=== PATIENT | female | born 1970 | race Caucasian/White ===

== ENCOUNTER 2016-09-09 02:08 | Inpatient (IN) | payer MEDICARE, OTHER ==
--- NOTE | ~2016-09-09 | DS ---
Unit #: [id number] #: [id number] Patient: ERINN GORDON [id number] [address] [place], [place] [address] [id number] I MR#: [id number] NAME: ERINN GORDON ROOM: 333 Age: 45 Sex: F Admission Date: 09/12/2016 : 1970 Discharge Date: 09/16/2016 Attending Physician: Sharmila Berry M.D. Primary Care Physician: No Primary Care Physician DISCHARGE SUMMARY FINAL DIAGNOSES 1. Acute respiratory failure, which is resolved. 2. Healthcare acquired pneumonia. 3. Left lower lobe pneumonia. 4. Urinary tract infection with urine culture growing e-coli. 5. Seizure with a history of seizure disorder. 6. History of profound mental retardation. 7. Code status DNR. 8. Gastroesophageal reflux disease. 9. Dysphagia, status post PEG placement. DISCHARGE MEDICATIONS 1. Continue home medications. 2. The patient is on antibiotics IV with ceftriaxone and IV Zyvox, which will be continued as per Dr. Tyler Edward's recommendation. 3. The patient was on vancomycin and Zosyn also, which have been discontinued, which he received from 09/09 to 09/14/2016. CONSULTANTS Dr. Tyler Edward from pulmonary services. DIAGNOSTIC DATA LABORATORY: At discharge, sodium 142, potassium 3.7, chloride 104, BUN 13, creatinine 0.5, calcium 8.9, white blood cell count 6.5, hemoglobin 12.4, hematocrit 39.1 and platelets 205. Blood cultures are negative. Sputum culture is no growth of pathogens. Urine culture is e-coli more than 100,000 colonies. One of the blood cultures grew staph which is coag negative. Probable skin contaminant. Lactic acid 0.8 on admission. IMAGING: Chest x-ray on 09/09/2016 which showed left lower lobe pneumonia. Repeat chest x-ray was done on 09/12/2016 and showed mild elevation of the left hemidiaphragm with infiltrate. Linear density seen in the left lung base favors atelectasis, although superimposed infiltrate not excluded. Mild pulmonary congestion. Abdominal x-ray done on 09/12/2016 shows enteric tube placed through the gastrostomy tube with the tip in the left mid abdomen likely in the jejunum. There is gaseous distension of multiple loops of bowel which appear to be both small bowel and colon. HOSPITAL COURSE Ms. Erinn Gordon is a 45-year-old female who is a resident of [facility]. She has multiple medical problems. She has been admitted multiple times for chronic aspiration and multiple pneumonias. The Unit #: [id number] #: [id number] Patient: ERINN GORDON patient was admitted with [id number] hypoxic respiratory failure. The patient was diagnosed with possible left lower lobe pneumonia, possible MRSA or gram negative. The patient was started on Zyvox, tobramycin and Zosyn. Urinalysis was also done, which showed e-coli more than 100,000 colonies. The patient was treated with IV antibiotics. The patient's code status is DNR, which was continued during hospitalization. The patient's blood culture was thought to be skin contaminant. The patient is doing better now. She is off her oxygen and saturations are pretty good. The patient did have seizure activity during hospitalization on 09/12/2016. She was seen by Dr. Arrieta and home medications were continued. No changes were made in the medications. The patient is stable and is being discharged back to [facility] for continued antibiotics. PHYSICAL EXAMINATION VITALS: Blood pressure 113/59, respiratory rate 18, pulse 64, temperature 97.9. CHEST: Fair air entry. Decreased at the bases. HEART: S1 and S2 positive. Regular rhythm. DISPOSITION The patient is being discharged back to [facility] in stable condition. Medications as per medication reconciliation. FOLLOWUP Follow up with Dr. Tyler Edward in one week. Dictated by... Lucina Pinedo TD: 09/16/2016 14:18 JOB #: [id number] DISCHARGE SUMMARY X Sharmila Berry MD X DISCHARGE SUMMARY
--- NOTE | ~2016-09-09 | CO ---
Unit #: [id number] #: [id number] Patient: ADELINA TRIANA [id number] [facility]. [place], [place] [address] [id number] Jacinda MR#: [id number] NAME: ADELINA TRIANA ROOM: 333 Age: 45 Sex: F Admission Date: 09/09/2016 : 1970 Attending Physician: Sharmila Berry M.D. Primary Care Physician: Primary Care Physician No Consultation Date: 09/12/2016 CONSULTATION REPORT PRIMARY CARE PHYSICIAN Barbra Morgan M.D. REASON FOR CONSULTATION Multiple seizure. PATIENT IDENTIFICATION This is a 45-year-old white female, who is actually a resident of [facility]. She has significant mental retardation and cerebral palsy. SOURCE OF INFORMATION Previous records. I have seen this patient several times in the past. PROBLEM LIST Pneumonia, aspiration, fever, hypoxic and hypercapnic respiratory failure, UTI, recurrent respirations, Angelman syndrome. HISTORY OF PRESENT ILLNESS This is a 45-year-old female from [facility] who was actually admitted for different reasons. I just found out that there may have been discrepancy in her medication. She was taking Lamictal as half the dose. She was supposed to get 400 mg b.i.d., and she may have been getting less than that also. She was not getting Klonopin, so she had multiple seizure this morning, and also, she was throwing up, so I gave her one dose of Vimpat and switch the Keppra to IV because she was throwing up, but it may be the postictal state that what she was having. Also, she has a febrile episode and may have UTI and typically the patient is very brittle and they frequently have seizures. When I saw her this morning, she was awake, she responded to visual threats. No further seizure have been seen. PAST MEDICAL HISTORY As discussed above. PAST SURGICAL HISTORY She believe has a G-tube. FAMILY HISTORY Details not available. She is at [facility]. She does have cerebral palsy. SOCIAL HISTORY She is at [facility]. No tobacco, alcohol or drug use known to us. Unit #: [id number] #: [id number] Patient: ADELINA TRIANA ALLERGIES Vancomycin, Depakote, Topamax, Avelox, Prolia. MEDICATIONS At home were lactulose; lamotrigine 200 mg 2 tablets every 12 hours, they were doing at 0500 and 1700; MiraLAX; Senna-Lax; Deep Sea nasal spray; flunisolide 0.025; Lubri-Soft; Diastat as needed; acetaminophen as needed; loratadine as needed; sodium bicarb; Brovana; budesonide; ipratropium; Nexium; Keppra 1000 mg every 12 hours and 500 extra so that will be total 1500; clonazepam 1 mg q.i.d.; Ferrocite; guaifenesin. REVIEW OF SYSTEMS Could not be obtained because of his present condition. PHYSICAL EXAMINATION VITAL SIGNS: Temperature is 101 degrees Fahrenheit, pulse is 100, respirations are 20, blood pressure 128/107, O2 sats were 90% to 98%, weight of 115 pounds. NEUROLOGIC: The patient is awake. She tracks. She responds to visual threat, so obviously she is nonverbal and she is not really otherwise following commands. Cranial nerve examination demonstrates respond to threats in the primary beauchamp. Eye movements seemed to be somewhat conjugate. No ptosis. No nystagmus. Sensation of the face and scalp, I do not see any facial asymmetry. Hearing is questionable. Tongue was midline. I could not visualize oropharynx or uvula. Head turning was spontaneous. Motor examination; she has contractures and clonus in the lower extremities. Limited movement in the upper extremities. I could not have her relaxed to get good reflexes, but she has clonus in the lower extremities. Gait and coordination could not be evaluated. Sensory examination; responded to pain. Motor examination, contractures, minimal withdrawal to pain. DIAGNOSTIC STUDIES LABORATORY RESULTS: Reviewed. When she came in, her pCO2 was 52, also UTI. White count is 7.5. IMAGING STUDIES: Reviewed. IMPRESSION 1. Breakthrough seizure, she may not be getting the appropriate medication. 2. She has urinary tract infection and fever and that decreases seizure threshold. So, this is not uncommon. 3. My goal is to continue the medication that worked for her but if not, then we will consider other IV medication. I discussed with Dr. Berry who was taking care of her and we will observe her more peripherally. If there are any other questions or issues, please let me know and I will be more than glad to help. Unit #: [id number] #: [id number] Patient: ADELINA TRIANA This is a very brittle patient and they need regular followup and compliance with medication that has been working for them and even in that case, it is not 100% that they get better. Dictated by... Lucina Wright/zacarias TD: 09/13/2016 02:44 JOB #: [id number] CONSULTATION REPORT X Liu Arrieta MD X CONSULTATION REPORT
--- NOTE | ~2016-09-09 | CR7 ---
[facility] A Service of [facility] RADIOLOGY TEXT RESULTS PATIENT: ADELINA TRIANA LOCATION: C3A 333-01 : [birth year] UNIT #: [id number] AGE: [address]: Sharmila Berry MD SEX: F ORDER DR: [id number] [facility]. [place], [place] [address] [id number] MR#: [id number] Acc #: [id number] NAME: ADELINA TRIANA : 1970 SEX: F STUDY DATE/TIME: 09/12/2016 UNIT: C3A U ROOM: 333 STUDY DESCRIPTION: CR Abdomen Single AP View Attending Physician: Sharmila Berry M.D. Ordering Physician: Tony Edward M.D. Primary Care Physician: Primary Care Physician No MEDICAL IMAGING REPORT This report is preliminary unless electronic signature is present EXAM Abdomen one-view, 09/12/2016 12:25 hours HISTORY 45-year-old patient from [facility] complaining of abdominal pain with discomfort and cough today. Feeding tube placement. COMPARISON 03/20/2016 FINDINGS Single supine view demonstrates a gastrostomy tube with enteric tube through the G-tube with tip terminating in the left mid abdomen, likely in the jejunum. There is gaseous distension of multiple loops of bowel which appear to be both small bowel and colon. No suspicious calcifications. There is a metallic density projecting in the soft tissues of the right flank similar to prior study. IMPRESSION 1. There is an enteric tube placed through the gastrostomy tube with the tip in the left mid abdomen likely in the jejunum. 2. There is gaseous distension of multiple loops of bowel which appear to be both small bowel and colon similar to prior study. No suspicious calcifications. There is a metallic foreign body of some type in the soft tissues of the right flank similar to prior exam. Dictated by... Manuela Landrum M.D. THIS IS AN ELECTRONICALLY VERIFIED REPORT Manuela Landrum M.D. at 09/12/2016 2:32 PM HUMBERTO/ellen [facility] A Service of [facility] RADIOLOGY TEXT RESULTS PATIENT: ADELINA TRIANA LOCATION: A 333-01 : [birth year] UNIT #: [id number] AGE: [address]: Sharmila Berry MD SEX: F ORDER DR: TD: 09/12/2016 13:30 JOB #: [id number] MEDICAL IMAGING REPORT COPY
--- NOTE | ~2016-09-09 | CO ---
Unit #: [id number] #: [id number] Patient: ADELINA TRIANA [id number] [address] [place], [place] [address] [id number] I MR#: [id number] NAME: ADELINA TRIANA ROOM: 333 Age: 45 Sex: F Admission Date: 09/09/2016 : 1970 Attending Physician: Sharmila Berry M.D. Primary Care Physician: Primary Care Physician No CONSULTATION REPORT HISTORY OF PRESENT ILLNESS Ms. Triana is a 45-year-old female, who is a resident of [facility] with a history of profound mental retardation, cerebral palsy, Angelman syndrome, seizure disorder, dysphagia, G-tube placement, VNS placement, history of previous trach removed in 2008, and multiple hospitalizations for respiratory failure secondary to aspiration pneumonia. Apparently her O2 saturations dropped at [facility] and she became less responsive and presented here to the emergency room. Chest x-ray showed new left lower lobe infiltrate. We were asked to see. PAST MEDICAL HISTORY As noted above. ALLERGIES Avelox and vancomycin. MEDICATIONS Nexium, Keppra, Klonopin, lactulose, Lamictal, Claritin, Brovana, budesonide, DuoNeb, and Pamprin. REVIEW OF SYSTEMS Not possible, the patient nonverbal. FAMILY HISTORY Not possible, the patient nonverbal. SOCIAL HISTORY Not possible, the patient nonverbal. Resident of [facility]. PHYSICAL EXAMINATION GENERAL: White female, in no distress. VITAL SIGNS: Blood pressure is 123/85, pulse 100, respiratory rate 18, afebrile. HEENT: Normocephalic and atraumatic. Pupils are equal, round, and reactive. Sclerae nonicteric. Nasal passages patent. Posterior pharynx clear. Mucous membranes moist. NECK: Supple. Trachea midline. Old tracheostomy scar. LUNGS: Scattered rhonchi. CARDIAC: Regular rate and rhythm. Could not appreciate murmur, rub, or gallop. ABDOMEN: Nontender. G-tube in place, bound. EXTREMITIES: Without clubbing, cyanosis, or edema. NEUROLOGIC: Awake, moves, nonverbal. Unit #: [id number] #: [id number] Patient: ADELINA TRIANA SKIN: Warm and dry. DIAGNOSTIC STUDIES IMAGING STUDIES: Chest x-ray as noted above. LABORATORY RESULTS: Arterial blood gas; pH 7.39, pCO2 of 52, pO2 of 201 on 100%. Chemistries reviewed CO2 is 34. Coags are normal. White count 7500, hematocrit 37.7, and platelet count normal. IMPRESSION 1. Acute hypoxemic hypercarbic respiratory failure with compensated respiratory acidosis. 2. Left lower lobe healthcare acquired pneumonia possible gram-negative or methicillin-resistant Staphylococcus aureus. 3. Seizure disorder. 4. Angelman syndrome. 5. Profound mental retardation. PLAN Broad-spectrum antibiotics to cover gram-negatives and MRSA. Given allergy to vancomycin, we will give Zyvox. We will administer O2 to maintain adequate saturation and continue nebulizer treatments and pulmonary hygiene. DVT prophylaxis. Further recommendations pending this. Dictated by... Tony Edward M.D. THALIA/zacarias TD: 09/10/2016 02:51 JOB #: [id number] CONSULTATION REPORT X Tony Edward MD X CONSULTATION REPORT
--- NOTE | ~2016-09-09 | A ---
[facility] Nutrition Therapy DATE: 09/09/16 Patient: ADELINA TRIANA Physician: DOC Address: [facility] Room/Bed: [address] [place] [address], Zip: [place] [address] Admit Date: 09/09/16 Date of : [birth year] Height: 5 5 Weight: 119 54.4 NUTRITIONAL ASSESSMENT: REASON: ENTERAL NUTRITION RECOMMENDATIONS 45 yo female admitted for PNA PMH: MR, cerebral palsy, GERD, dysphagia s/p PEG, recurrent aspiration PNA, respiratory failure, seizure disorder Anthropometrics: Ht: 65" Adm wt: 55.9 kg BMI: 20.5 Labs: Nutritional labs WNL Meds: Lactulose, ferrous gluconate, protonix, senokot, miralax, sodium bicarbonate I/O & Bowel function: none available, PEG, last BM 09/09 Skin Integrity: Puncture procedure site- mid abdomen Healed surgical scars- neck/ chest/ abdomen Redness LAC Edema: None noted Estimated Nutrition Needs: [id number] kcals (25-30 kcals/kg) 67-84 grams protein (1.2-1.5 grams/kg) Home enteral nutrition regimen: Isosource HN @ 60 mL/hr x 24 hrs Assessment: Chart reviewed, events noted. Pt is well known to RDs here with multiple previous admission and recurrent aspiration PNA. RD spoke with Dee Dee NAIDU to confirm pt is still on the same enteral regimen. Per previous RD notes, the pt has been on Osmolite 1.[address] [place] [address] reports that they recently started the pt on Isosource HN at [facility] (equivalent to Osmolite 1.2 only a different brand). [place] RD confirmed that Osmolite 1.2 is OK to use for the pt. RD informed RN of this, and enteral nutrition to begin today. Weights are stable since previous admission in May 2016. Pt is noverbal and inappropriate for nutrition interview at this time. RD will follow up per protocol. Dx: Inadequate oral intake RT dysphagia AEB need for EN, PEG. Intervention: 1. Enteral nutrition [facility] Nutrition Therapy DATE: 09/09/16 Patient: ADELINA TRIANA Physician: DOC Address: [facility] Room/Bed: [address] [place] [address], Zip: [place] [address] Admit Date: 09/09/16 Date of : [birth year] Height: 5 5 Weight: 119 54.4 Monitoring, Evaluation and Goals: 1. Enteral nutrition; provide >80% goal volume x 24 hrs 2. Labs; WNL 3. Weight; prevent weight loss Recommendations: 1. Start Osmolite 1.2 @ 30 mL/hr. Increase by 10 mL q 6 hrs as tolerated to goal of 60 mL/hr. This will provide: 1728 kcals/ 80 grams protein/ 1181 mL free H20 2. Add 200 mL free H20 flushes TID or per MD orders. 3. Ensure HOB is upright at a minimum of 40 degrees during EN administration (x 24 hrs). Pt is at mild nutritional risk. Respectfully, CHALO EARL RD, LD [facility] and Nutrition[facility] Services [facility] cc: client file
--- NOTE | ~2016-09-09 | CR72 ---
[facility] A Service of [facility] & [facility] RADIOLOGY TEXT RESULTS PATIENT: ADELINA TRIANA LOCATION: A 333-01 : 72 UNIT #: [id number] AGE: [address]: Sharmila Berry MD SEX: F ORDER DR: [id number] [facility] [address] [facility]. [place], [place] [address] [id number] MR#: [id number] Acc #: [id number] NAME: ADELINA TRIANA : 1970 SEX: F STUDY DATE/TIME: 09/09/2016 2:23 UNIT: JELLY ROOM: STUDY DESCRIPTION: CR Chest Single View Portable Attending Physician: Jason Kohler M.D. Ordering Physician: Jason Kohler M.D. Primary Care Physician: Primary Care Physician No MEDICAL IMAGING REPORT This report is preliminary unless electronic signature is present EXAM Portable chest, 09/09/2016 HISTORY Shortness of breath and low oxygen saturation today. FINDINGS Exam is limited by patient rotation. The heart is normal in size. There is airspace consolidation in the left lower lobe characteristic of pneumonia. Lungs are otherwise clear. There are no pleural effusions. IMPRESSION Left lower lobe pneumonia. Dictated by... Benjamin Pena M.D. THIS IS AN ELECTRONICALLY VERIFIED REPORT Benjamin Pena M.D. at 09/09/2016 5:28 AM JOY/fadumo TD: 09/09/2016 03:36 JOB #: [id number] MEDICAL IMAGING REPORT COPY
--- NOTE | ~2016-09-09 | HP ---
Unit #: [id number] #: [id number] Patient: ADELINA GORDON [id number] [address] [place], [place] [address] [id number] MR#: [id number] NAME: ADELINA GORDON ROOM: 333 Age: 45 Sex: F Admission Date: 09/09/2016 : 1970 Attending Physician: Sharmila Berry M.D. Primary Care Physician: No Primary Care Physician HISTORY AND PHYSICAL CHIEF COMPLAINT Low saturation. HISTORY OF PRESENTING ILLNESS Ms. Gordon is a 45-year-old female who has history of mental retardation, cerebral palsy, [facility] resident, and seizure disorder. Was sent from [facility] because of shortness of breath and low oxygen saturation, saturation was almost 60%. She was placed on 100% mask and was sent to ER. Patient was also coughing up some phlegm. Patient is nonverbal. Most of the history has been taken from ER notes and [facility] notes. In ER, patient's saturation was 74%. Patient is doing much better at this time and is on nasal cannula. Patient was afebrile on admission. At this time, her temperature is 100.4. Patient's saturations have improved to 98%. PAST MEDICAL HISTORY 1. Cerebral palsy. 2. Seizure disorder. 3. Profound mental retardation. 4. Multiple pneumonias in the past. 5. GERD. 6. Dysphagia, status post PEG placement. PAST SURGICAL HISTORY History of laparotomy and history of PEG tube placement. HOME MEDICATIONS Patient is on multiple medications. Please refer to med rec. Med rec has been reviewed and signed. ALLERGIES Patient is allergic to Depakote, Topamax, Avelox, Prolia, and vancomycin. SOCIAL HISTORY Patient is a resident of [facility]. FAMILY HISTORY Not significant. REVIEW OF SYMPTOMS As per history of presenting illness. PHYSICAL EXAMINATION Unit #: [id number] #: [id number] Patient: ADELINA GORDON GENERAL APPEARANCE: Patient is lying in bed. Does not seem to be in any respiratory distress. VITAL SIGNS: Blood pressure is 102/58, respiratory rate 20, pulse is 102, temperature 100.4, and oxygen saturation is 98%, patient's and weight is 123 pounds. HEENT: Head is normocephalic. Nasal cannula oxygen is on. CHEST: Decreased air entry. Crackles are positive in the right lower lobe. CVS: S1 and S2 positive. Regular rhythm. ABDOMEN: Soft. No tenderness. PEG tube is in place. EXTREMITIES: Negative edema. Some contractures are present in the lower extremities. INDEPENDENT JEWELER: Patient is nonverbal. DIAGNOSTIC STUDIES LABORATORY: ABG on 15 liters showed pH 7.39, pCO2 52, pO2 201, bicarb 31, and oxygen saturation 98.4%. Troponin was less than 0.05. CBC shows WBC 7.5, hemoglobin 12.3, hematocrit 37.7, and platelet count of 189. Lactic acid 0.8. BMP shows sodium 136, potassium 3.8, chloride 104, BUN 9, creatinine 0.6, and liver enzymes are normal. Lipase is normal. Urinalysis shows 3+ leukocyte esterase. IMAGING: Chest x-ray shows left lower lobe pneumonia. Discussed with Dr. Tyler Edward. Seems like patient has bilateral infiltrates. ASSESSMENT Patient is being admitted to telemetry unit with diagnoses of: 1. Acute hypoxic respiratory failure. 2. Left lower lobe pneumonia, possible MRSA, gram-negative. 3. Seizure disorder. 4. Profound mental retardation. 5. Urinary tract infection. Urine culture is pending. 6. Cerebral palsy. PLAN Admit to telemetry unit. Dr. Tyler Edward has been consulted. Broad-spectrum IV antibiotic is being started. Sputum culture is being sent. Labs will be repeated tomorrow morning. Home medications have been reviewed and adjusted. Refer to progress notes for further orders. Code status is DNR. Dictated by Lucina Pinedo TD: 09/09/2016 12:47 JOB #: [id number] Unit #: [id number] #: [id number] Patient: ADELINA GORDON HISTORY AND PHYSICAL X Sharmila Berry MD HISTORY AND PHYSICAL
--- NOTE | ~2016-09-09 | CR72 ---
[facility] A Service of [facility] & [facility] RADIOLOGY TEXT RESULTS PATIENT: ADELINA TRIANA LOCATION: [facility] 333-01 : [birth year] UNIT #: [id number] AGE: [address]: Sharmila Berry MD SEX: F ORDER DR: [id number] [facility] [address] [facility]. [place], [place] [address] [id number] I MR#: [id number] Acc #: [id number] NAME: ADELINA TRIANA : 1970 SEX: F STUDY DATE/TIME: 09/12/2016 10:31 UNIT: A U ROOM: [facility] STUDY DESCRIPTION: CR Chest Single View Portable Attending Physician: Sharmila Berry M.D. Ordering Physician: Tony Edward M.D. Primary Care Physician: No Primary Care Physician MEDICAL IMAGING REPORT This report is preliminary unless electronic signature is present EXAM Portable chest HISTORY Cough, heavy sweats, shortness of air. [place] patient. COMPARISON 09/09/2016 FINDINGS Portable view of the chest demonstrates moderate lung volume and satisfactory technique. There is mild elevation of the left hemidiaphragm suggesting left basilar atelectasis and/or infiltrate. Linear density seen in the left lung base favors atelectasis although superimposed infiltrate not excluded. Mild pulmonary vascular congestion. No sizeable effusions. Heart and mediastinum unremarkable. Electronic device noted in the left chest with leads in the left neck may represent a neurostimulator. No visible pneumothorax. Dictated by... Carolee Strauss M.D. THIS IS AN ELECTRONICALLY VERIFIED REPORT Carolee Strauss M.D. at 09/13/2016 12:07 PM LEONARDO/marli TD: 09/12/2016 13:35 JOB #: [id number] MEDICAL IMAGING REPORT COPY
--- NOTE | ~2016-09-09 | EKG ---
PATIENT: ADELINA TRIANA UNIT #: [id number] Ventricular Rate: 88 BPM Atrial Rate: 88 BPM P-R Interval: 138 ms QRS Duration: 88 ms Q-T Interval: 376 ms QTC Calculation(Bezet): 454 ms P [place]: 74 degrees Calculated R [place]: 16 degrees Calculated T [place]: 38 degrees Diagnosis Line: Diagnosis Line: Normal sinus rhythm Diagnosis Line: Possible Left atrial enlargement Diagnosis Line: Borderline ECG Diagnosis Line: No previous ECGs available Diagnosis Line: Confirmed by BRIAN MITCHELL MD ([id number]) on 09/11/2016 Diagnosis Line: 2:38:07 PM INTERPRETING MD: PAULA MCLEOD
--- NOTE | ~2016-09-09 | FU ---
[facility] Nutrition Therapy DATE: 09/14/16 Patient: ADELINA TRIANA Physician: DOC Address: [facility]/MR Room/Bed: [address] [place] [address], Zip: [place] [address] Admit Date: 09/09/16 Date of : 72 Height: 5 5 Weight: 112 51 NUTRITION MONITORING/FOLLOW-UP: Reason: Enteral nutrition follow up Anthropometrics: Ht: 65" Adm wt: 55.9 kg BMI: 20.5 Wt 09/14: 51 kg Labs: reviewed. No new since 09/12. Meds: Protonix, lactulose, NaCl, loperamide, senokot, miralax, sodium bicarbonate I&O's: 560/6, last BM 09/14 Skin: reviewed Edema: none noted Estimated Nutrition Needs: 7899-7089 kcals (25-30 kcals/kg) 67-84 grams protein (1.2-1.5 grams/kg) Assessment: Chart reviewed, events noted. Pt is tolerating enteral nutrition at goal with Osmolite 1.2 @ 60 mL.hr per RN report. Per pump history, the pt has received 77% of his goal volume of enteral nutrition over the past 24 hrs. Dx: Inadequate oral intake RT dysphagia AEB PEG, enteral nutrition, NPO. Intervention: 1. Enteral nutrition Monitoring, Evaluation and Goals: IN PROGRESS 1. Enteral nutrition; provide >80% goal volume x 24 hrs 2. Labs; WNL 3. Weight; prevent unintentional weight loss, promote weight gain/ maintain 4. SKin; prevent breakdown Recommendations: 1. Continue current enteral nutrition regimen as tolerated, running continuously for 24 hrs as medically feasible. Pt received 77% goal volume over the past 24 hrs. Status: Pt is at mild nutritional risk. [facility] Nutrition Therapy DATE: 09/14/16 Patient: ADELINA TRIANA Physician: DOC Address: [facility]/MR Room/Bed: [address] [place] [address], Zip: [place] [address] Admit Date: 09/09/16 Date of : [birth year] Height: 5 5 Weight: 112 51 Respectfully, CHALO EARL RD, LD Food and Nutritional Services [facility] cc: client file
[~2016-09-09 02:08] MED LIST: ACETAMINOP160 MG/13 PEG; ACETAMINOPHEN GT; ACETAMINOPHEN PEG; ACETAMINOPHEN PO; ACETAMINOPHEN650 M1 DOB; ADULT MUCU100 MG/5 M PO; ADULT TUSS100 MG/5 M PEG; ALAVERT10 MG GT; ALBUTEROL 0.5ML INH; ALBUTEROL 0.5ML NEB; ALENDRONATE SOD70 MG PO; AMOXICILLIN875 MG PEG; ATROVENT NEB; BAZA PROTECT CR57 GM TOP; BISACODYL10 MG/SUPP PR; BISACODYL10 MG/SUPP RC; BONIVA150 MG GT; BONIVA150 MG PO; BROVANA15 MCG/2 M INH; BUDESONIDE0.5 MG/2 M INH; CALCIUM 500MG GT; CALCIUM CARB SUSP DOB; CALCIUM CARBONATE GT; CALCIUM CHEW GT; CALCIUM CHEWABLE GT; CALCIUM1 TAB.CHEW GT; CEFTIN PO; CEROVITE GT; CERTA VITE GT; CERTAVITE GT; CITRATE OF MAG296 ML PO; CLARITIN10 M2 PEG; CLARITIN10 M3 DOB; CLARITIN10 M3 GT; CLARITIN10 MG GT; CLARITIN10 MG PO; CLEOCIN PH600 MG/4 M IV; CLONAZEPAM0.5 MG GT; COLACE; COLACE PO; COMBIVENT U/D3 M2 INH; CORRECTOL5 MG; DEEP SEA NASAL; DIASTAT ACUDIAL1 KIT; DIASTAT ACUDIAL1 KIT RC; DIASTAT10 MG PR; DILANTIN GT; DILANTIN PEG; DILANTIN PO; DILANTIN50 MG GT; DOCUSATE GT; DOCUSATE SOD GT; E.E.S. 200200 MG/51 DOB; E.E.S. 200200 MG/51 GT; E.E.S.-GRA200 MG/5 M GT; EES GT; EES/SULFISOXAZ100 ML GT; ENEMA RC; ERYTHROMYC200 MG/5 M PEG; FLUNISOLIDE25 ML; GENTLE LAXATIVE10 MG RC; GOLYTELY; GOLYTELY SOLU4000 ML GT; GOLYTELY SOLU4000 ML PEG; GUAIFENESIN GT; IBUPROFEN GT; IBUPROFEN IN40 MG/ML GT; IPRAT-ALBUT 0.5-3 ML INH; KEPPRA GT; KEPPRA PO; KEPPRA1000 MG DOB; KEPPRA1000 MG GT; KEPPRA1000 MG PEG; KEPPRA500 M1 PEG; KEPPRA500 M2 GT; KEPPRA500 MG PO; KEPPRA500 MG/51 PEG; KEPPRA750 MG; KEPPRA750 MG GT; KEPPRA750 MG IV; KEPPRA750 MG PO; KLONOPIN DOB; KLONOPIN GT; KLONOPIN PO; KLONOPIN0.5 MG GT; KLONOPIN1 M1 PEG; KLONOPIN1 MG DOB; KLONOPIN1 MG GT; KLONOPIN1 MG PO; LACTULOSE10 G/15 M1 DOB; LACTULOSE10 G/15 M1 GT; LACTULOSE10 G/15 M1 PEG; LACTULOSE10 G/15 M1 PO; LACTULOSE10 G/15 M4 GT; LACTULOSE10 G/15 ML GT; LACTULOSE10 G/15 ML PO; LAMICTAL GT; LAMICTAL PEG; LAMICTAL PO; LAMICTAL XR200 MG GT; LAMOTRIGINE200 MG DOB; LAMOTRIGINE200 MG GT; LAMOTRIGINE200 MG PO; LAMOTRIGINE25 M1 GT; LEVAQUIN I750 MG/151 IV; LOTRIMIN30 GM TOP; LUBRIFRESH PM3.5 G1 TOP; LYRICA GT; MACROBID 100 M100 MG PO; MAGIC BUTT; METOCLOPRAM PO; MIDOL GT; MIDOL PEG; MIDOL PO; MILK OF MAGNESIA GT; MILK OF MAGNESIA PEG; MIRALAX17 GM DOB; MIRALAX17 GM GT; MIRALAX17 GM PEG; MIRALAX255 GM GT; MIRALAX255 GM PEG; MUCOMYST NEB; MULTIVITAM9 MG/15 ML PO; NASAL SPRAY30 M1; NASALIDE INHALE25 ML; NASALIDE25 ML; NEXIUM20 MG DOB; NEXIUM20 MG GT; NEXIUM20 MG PEG; NEXIUM20 MG/PACK GT; NEXIUM20 MG/PACK PEG; NORMAL SALINE GT; OCEAN45 ML; OSMOLITE 1.21000 ML PEG; OYSTER CALCIUM500 MG GT; PAMPRIN MULTI-S1 TAB DOB; PAMPRIN MULTI-S1 TAB GT; PAMPRIN MULTI-S1 TAB PEG; PAMPRIN MULTI-S1 TAB PO; PATIENT'S PHARMACY; PEG 3350-GRX250 GM DOB; PEG 3350-GRX250 GM GT; PHENERGAN PR; PHENYTOIN PO; PREVACID; PREVACID GT; PREVACID PEG; PREVACID SOLUTA30 MG PO; PREVACID SOLUTAB GT; PROVENTIL0.83 MG/ML INH; REGLAN FT; REGLAN GT; REGLAN PEG; REGLAN PO; RISAMINE OINTM113 GM TOP; SEA MIST44 ML; SENNA CONCENTR8.6 MG DOB; SENNA GT; SENNA8.8 MG/5 M GT; SENNA8.8 MG/5 M PEG; TYLENOL325 M1 GT; TYLENOL325 M1 PO; VASELINE; VASELINE TOP; VIMPAT FT; VIMPAT PEG; VITAMIN D 4001 UDTAB GT; VITAMIN D 4001 UDTAB PEG; VITAMIN D 4001 UDTAB PO; VITAMIN D GT; VITAMIN D1000 UNI1 PEG; VITAMIN D1000 UNI2 PO; VITAMIN D31000 UNIT PEG; VITAMIN D400 UNI1 PO; ZITHROMAX1 G/PKT PO; [UNRECOGNIZED DRUG - MIXTURE] IV; [UNRECOGNIZED DRUG - OTHER] GT; [UNRECOGNIZED DRUG - OTHER] TOP
[2016-09-09 02:27] LABS: ARTERIAL BLD GAS O2 SATURATION 98.4 % (90.0-100.0); ARTERIAL BLOOD GAS ART SITE RIGHT BRACHIAL; ARTERIAL BLOOD GAS CARBOXY HB 0.7 %sat (0.0-9.0); ARTERIAL BLOOD GAS HCO3 31.9 mmol/L; ARTERIAL BLOOD GAS MET HB 0.9 %sat (0.0-2.0); ARTERIAL BLOOD GAS pH 7.396 (7.350-7.450); ARTERIAL DRAW? YES
[2016-09-09 02:28] LABS: ARTERIAL BLOOD GAS DELIVERY NON REBREATHER MASK
[2016-09-09 02:45] LABS: POC - CKMB <1.0 ng/mL (0.0-7.9); POC - TROPONIN <0.05 ng/mL (<=0.05)
[2016-09-09 02:47] LABS: BASOPHIL% 0.4 % (0-2.5); EOSINOPHIL# 0.6 X10e3 (0-0.7); EOSINOPHIL% 8.1 % (0.0-7.0); HEMATOCRIT 37.7 % (35.0-45.0); HEMOGLOBIN 12.3 gm/dL (12.0-16.0); LYMPHOCYTE# 1.2 X10e3 (1.0-3.5); LYMPHOCYTE% 15.5 % (17.0-45.0); MEAN CELL VOLUME 95.6 FL (83-96); MEAN CORPUSCULAR HEMOGLOBIN 31.3 PG (28-34); MEAN CORPUSCULAR HGB CONC 32.7 g/dL (30-36); MEAN PLATELET VOLUME 12.1 FL (6.5-11.5); MONOCYTE# 0.2 X10e3 (0-1.0); MONOCYTE% 2.8 % (3.0-12.0); NEUTROPHIL# 5.5 X10e3 (1.5-7.1); NEUTROPHIL% 73.2 % (40-75); RED BLOOD COUNT 3.94 X10e (3.90-5.30); RED CELL DISTRIBUTION WIDTH 16.8 % (11.0-15.5); WHITE BLOOD COUNT 7.5 X10e3 (4.0-10.5)
[2016-09-09 02:56] LABS: DIFF IND NO; PLATELET COUNT 189 X10e3 (140-420)
[2016-09-09 03:04] LABS: PROTHROMBIN TIME (PATIENT) 10.5 SECONDS (9.6-11.5)
[2016-09-09 03:25] LABS: ALBUMIN SERUM 3.7 g/dL (3.5-5.0); ALKALINE PHOSPHATASE 82 U/L (32-92); ALT (SGPT) 15 U/L (10-40); AST (SGOT) 22 U/L (10-42); BILIRUBIN, DIRECT 0.1 mg/dL (0.0-0.2); BILIRUBIN,INDIRECT 0.4 mg/dL (0.0-0.9); BILIRUBIN,TOTAL 0.5 mg/dL (0.2-2.0); BLOOD UREA NITROGEN 9 mg/dL (9-23); CALCIUM SERUM 8.7 mg/dL (8.4-10.2); CARBON DIOXIDE 34 mmol/L (22-31); CHLORIDE 101 mmol/L (100-111); CREATININE SERUM 0.6 mg/dL (0.6-1.4); GLOM FILT RATE Estimated ABOVE60 mL/min (>60); GLUCOSE FASTING 76 mg/dL (70-110); LIPASE 30 U/L (22-51); POTASSIUM 3.8 mmol/L (3.5-5.1); PROTEIN TOTAL SERUM 6.9 g/dL (6.0-8.3); SODIUM 136 mmol/L (135-145)
[2016-09-09 03:27] LABS: URINE SOURCE CLEAN CATCH
[2016-09-09 03:39] LABS: URINE APPEARANCE CLOUDY; URINE BILIRUBIN NEG (NEG); URINE BLOOD TRACE (NEG); URINE COLOR YELLOW; URINE GLUCOSE NEG (NEG); URINE KETONE TRACE (NEG); URINE LEUKOCYTE ESTERASE 3+ (NEG); URINE NITRATE NEG (NEG); URINE PROTEIN NEG (NEG)
[2016-09-09 03:41] LABS: CULTURE INDICATED? YES; URINE BACTERIA AUWI NEG (NEGATIVE); URINE SQUAMOUS EPITHELIAL CELL NONE SEEN /[HPF]; UWBCS1 AUWI 100-200 (0-5)
[2016-09-10 08:06] LABS: BLOOD UREA NITROGEN 8 mg/dL (9-23); BUN/CREATININE RATIO 13.33; CALCIUM SERUM 9.2 mg/dL (8.4-10.2); CARBON DIOXIDE 28 mmol/L (22-31); CHLORIDE 106 mmol/L (100-111); CREATININE SERUM 0.6 mg/dL (0.6-1.4); GLOM FILT RATE Estimated ABOVE60 mL/min (>60); GLUCOSE FASTING 98 mg/dL (70-110); POTASSIUM 4.1 mmol/L (3.5-5.1); SODIUM 144 mmol/L (135-145)
[2016-09-12 13:03] LABS: HEMATOCRIT 38.4 % (35.0-45.0); HEMOGLOBIN 12.5 gm/dL (12.0-16.0); MEAN CELL VOLUME 94.9 FL (83-96); MEAN CORPUSCULAR HEMOGLOBIN 30.9 PG (28-34); MEAN CORPUSCULAR HGB CONC 32.6 g/dL (30-36); MEAN PLATELET VOLUME 11.5 FL (6.5-11.5); RED BLOOD COUNT 4.05 X10e (3.90-5.30); RED CELL DISTRIBUTION WIDTH 16.4 % (11.0-15.5); WHITE BLOOD COUNT 11.9 X10e3 (4.0-10.5)
[2016-09-12 13:30] LABS: BLOOD UREA NITROGEN 11 mg/dL (9-23); BUN/CREATININE RATIO 18.33; CALCIUM SERUM 8.4 mg/dL (8.4-10.2); CARBON DIOXIDE 25 mmol/L (22-31); CHLORIDE 104 mmol/L (100-111); CREATININE SERUM 0.6 mg/dL (0.6-1.4); GLOM FILT RATE Estimated ABOVE60 mL/min (>60); GLUCOSE FASTING 130 mg/dL (70-110); POTASSIUM 4.2 mmol/L (3.5-5.1); SODIUM 135 mmol/L (135-145)
[2016-09-15 06:29] LABS: HEMATOCRIT 39.1 % (35.0-45.0); HEMOGLOBIN 12.4 gm/dL (12.0-16.0); MEAN CELL VOLUME 95.8 FL (83-96); MEAN CORPUSCULAR HEMOGLOBIN 30.5 PG (28-34); MEAN CORPUSCULAR HGB CONC 31.9 g/dL (30-36); MEAN PLATELET VOLUME 11.5 FL (6.5-11.5); RED BLOOD COUNT 4.08 X10e (3.90-5.30); RED CELL DISTRIBUTION WIDTH 16.6 % (11.0-15.5); WHITE BLOOD COUNT 6.5 X10e3 (4.0-10.5)
[2016-09-15 07:25] LABS: BLOOD UREA NITROGEN 13 mg/dL (9-23); CALCIUM SERUM 8.9 mg/dL (8.4-10.2); CARBON DIOXIDE 27 mmol/L (22-31); CHLORIDE 104 mmol/L (100-111); CREATININE SERUM 0.5 mg/dL (0.6-1.4); GLOM FILT RATE Estimated ABOVE60 mL/min (>60); GLUCOSE FASTING 91 mg/dL (70-110); POTASSIUM 3.7 mmol/L (3.5-5.1); SODIUM 142 mmol/L (135-145)
[2016-10-03] MEDS ORDERED: NEXIUM20 MG/PACK GT (02:39)
[2016-10-03] MEDS ORDERED: FERROCITE PLUS1 CA1 GT (02:42)
[2016-10-03] MEDS ORDERED: LACTULOSE10 G/15 ML GT (02:43)
[2016-10-03] MEDS ORDERED: OCEAN45 ML (02:46)
[2016-10-03] MEDS ORDERED: DIASTAT ACUDIAL1 KIT PR (02:47)
[2016-10-03] MEDS ORDERED: PAMPRIN MULTI-S1 TAB GT (02:48)
[2016-12-03] MEDS ORDERED: LAMOTRIGINE200 MG GT (02:44)
[2016-12-03] MEDS ORDERED: SENNA CONCENTR8.6 MG PO (02:45)
[2016-12-03] MEDS ORDERED: TYL325 GT (02:48)
[2017-01-11] MEDS ORDERED: KEPPRA500 MG/51 GT (02:40)
[2017-01-11] MEDS ORDERED: KLONOPIN1 M1 GT (02:41)
[2017-01-11] MEDS ORDERED: E.E.S. 200200 MG/51 GT (02:41)
[2017-01-11] MEDS ORDERED: EXPECTORAN100 MG/51 GT (02:43)
[2017-01-11] MEDS ORDERED: MIRALAX17 GM GT (02:44)
[2017-01-11] MEDS ORDERED: NASALIDE INHALE25 ML (02:46)
[2017-01-11] MEDS ORDERED: CLARITIN10 M3 GT (02:48)
[2017-01-11] MEDS ORDERED: SODIUM BICARBO650 MG GT (02:49)
[2017-01-11] MEDS ORDERED: BROVANA15 MCG/2 M INH (02:50)
[2017-01-11] MEDS ORDERED: VIOKACE 10,4401 EACH GT (02:50)
[2017-01-11] MEDS ORDERED: PULMICORT0.5 MG/2 M INH (02:51)
[2017-01-11] MEDS ORDERED: IPRATR-ALBUTEROL3 ML INH (02:51)
== END 2016-09-16 14:45 | DRG 177 ==
LOC: CED 02:08 → CEDOF 03:45 → C3A PCU 09-12 14:57
PROVIDERS: Emergency Medicine; Hospitalist; Internal Medicine; Physician Assistant Medical
DX: J15.212 Pneumonia due to Methicillin resistant Staphylococcus aureus (principal); J96.01 Acute respiratory failure with hypoxia; J96.02 Acute respiratory failure with hypercapnia; R53.2 Functional quadriplegia; F73 Profound intellectual disabilities; G80.9 Cerebral palsy, unspecified; E87.2 Acidosis; R13.10 Dysphagia, unspecified; N39.0 Urinary tract infection, site not specified; Q93.5 Other deletions of part of a chromosome; J15.6 Pneumonia due to other Gram-negative bacteria; G40.909 Epilepsy, unspecified, not intractable, without status epilepticus; Z93.1 Gastrostomy status; B96.20 Unspecified Escherichia coli [E. coli] as the cause of diseases classified elsewhere; Z66 Do not resuscitate
CPT/HCPCS: 36415; 36600; 71010; 74000; 80048; 80076; 80200; 81003; 82553; 82803; 83605; 83690; 84484; 85025; 85027; 85610; 85730; 87040; 87070; 87086; 87186; 87205; 93005; 94640; 94760; 99285; C9113; C9254; J0456; J0696; J1953; J2020; J2060; J2543; J3260

== ENCOUNTER 2016-09-16 16:38 | Emergency (ER) | payer MEDICARE, OTHER ==
[2016-09-16 17:25] LABS: BLOOD UREA NITROGEN 17 mg/dL (9-23); CALCIUM SERUM 8.8 mg/dL (8.4-10.2); CARBON DIOXIDE 27 mmol/L (22-31); CHLORIDE 103 mmol/L (100-111); CREATININE SERUM 0.5 mg/dL (0.6-1.4); GLOM FILT RATE Estimated ABOVE60 mL/min (>60); GLUCOSE FASTING 91 mg/dL (70-110); SODIUM 140 mmol/L (135-145)
[2016-09-16 17:43] LABS: BASOPHIL# 0.1 X10e3 (0-0.3); BASOPHIL% 2.7 % (0-2.5); EOSINOPHIL# 0.2 X10e3 (0-0.7); EOSINOPHIL% 5.6 % (0.0-7.0); HEMATOCRIT 38.6 % (35.0-45.0); HEMOGLOBIN 12.6 gm/dL (12.0-16.0); LYMPHOCYTE# 1.2 X10e3 (1.0-3.5); LYMPHOCYTE% 28.3 % (17.0-45.0); MEAN CELL VOLUME 95.6 FL (83-96); MEAN CORPUSCULAR HEMOGLOBIN 31.3 PG (28-34); MEAN CORPUSCULAR HGB CONC 32.7 g/dL (30-36); MONOCYTE# 0.6 X10e3 (0-1.0); MONOCYTE% 14.3 % (3.0-12.0); NEUTROPHIL# 2.2 X10e3 (1.5-7.1); NEUTROPHIL% 49.1 % (40-75); RED BLOOD COUNT 4.04 X10e (3.90-5.30); RED CELL DISTRIBUTION WIDTH 16.1 % (11.0-15.5); WHITE BLOOD COUNT 4.4 X10e3 (4.0-10.5)
[2016-09-16 17:47] LABS: DIFF IND NO; PLATELET COUNT 206 X10e3 (140-420)
[2016-09-16 18:08] LABS: URINE SOURCE CLEAN CATCH
[2016-09-16 18:15] LABS: URINE APPEARANCE CLEAR; URINE BILIRUBIN NEG (NEG); URINE BLOOD NEG (NEG); URINE COLOR YELLOW; URINE GLUCOSE NEG (NEG); URINE KETONE NEG (NEG); URINE LEUKOCYTE ESTERASE NEG (NEG); URINE NITRATE NEG (NEG); URINE PROTEIN NEG (NEG); URINE SPECIFIC GRAVITY 1.022 (1.003-1.035); URINE UROBILINOGEN 0.2 MG/DL (NEG)
[2016-09-16 18:50] LABS: CULTURE INDICATED? NO
[2016-10-03] MEDS ORDERED: NEXIUM20 MG/PACK GT (02:39)
[2016-10-03] MEDS ORDERED: FERROCITE PLUS1 CA1 GT (02:42)
[2016-10-03] MEDS ORDERED: LACTULOSE10 G/15 ML GT (02:43)
[2016-10-03] MEDS ORDERED: OCEAN45 ML (02:46)
[2016-10-03] MEDS ORDERED: DIASTAT ACUDIAL1 KIT PR (02:47)
[2016-10-03] MEDS ORDERED: PAMPRIN MULTI-S1 TAB GT (02:48)
[2016-12-03] MEDS ORDERED: LAMOTRIGINE200 MG GT (02:44)
[2016-12-03] MEDS ORDERED: SENNA CONCENTR8.6 MG PO (02:45)
[2016-12-03] MEDS ORDERED: TYL325 GT (02:48)
[2017-01-11] MEDS ORDERED: KEPPRA500 MG/51 GT (02:40)
[2017-01-11] MEDS ORDERED: E.E.S. 200200 MG/51 GT (02:41)
[2017-01-11] MEDS ORDERED: KLONOPIN1 M1 GT (02:41)
[2017-01-11] MEDS ORDERED: EXPECTORAN100 MG/51 GT (02:43)
[2017-01-11] MEDS ORDERED: MIRALAX17 GM GT (02:44)
[2017-01-11] MEDS ORDERED: NASALIDE INHALE25 ML (02:46)
[2017-01-11] MEDS ORDERED: CLARITIN10 M3 GT (02:48)
[2017-01-11] MEDS ORDERED: SODIUM BICARBO650 MG GT (02:49)
[2017-01-11] MEDS ORDERED: BROVANA15 MCG/2 M INH (02:50)
[2017-01-11] MEDS ORDERED: VIOKACE 10,4401 EACH GT (02:50)
[2017-01-11] MEDS ORDERED: IPRATR-ALBUTEROL3 ML INH (02:51)
[2017-01-11] MEDS ORDERED: PULMICORT0.5 MG/2 M INH (02:51)
== END 2016-09-16 18:58 | disposition other institution (70) ==
LOC: CED 16:38
PROVIDERS: Student in an Organized Health Care Education/Training Program
DX: G40.409 Other generalized epilepsy and epileptic syndromes, not intractable, without status epilepticus (principal); Z88.8 Allergy status to other drugs, medicaments and biological substances; Z79.899 Other long term (current) drug therapy
CPT/HCPCS: 36415; 80048; 81003; 85025; 99284; J1953

== ENCOUNTER 2016-10-02 04:56 | Emergency (ER) | payer MEDICARE, OTHER ==
--- NOTE | ~2016-10-02 | CR7 ---
[facility] A Service of [facility] & [facility] RADIOLOGY TEXT RESULTS PATIENT: ADELINA TRIANA LOCATION: JELLY : 72 UNIT #: [id number] AGE: [address]: Armin Cohen MD SEX: F ORDER DR: [id number] [facility] [address] [place], [place] [address] [id number] E MR#: [id number] Acc #: [id number] NAME: ADELINA TRIANA : 1970 SEX: F STUDY DATE/TIME: 10/02/2016 5:43 UNIT: JELLY ROOM: STUDY DESCRIPTION: CR Abdomen Single AP View Attending Physician: rAmin Cohen M.D. Ordering Physician: Armin Cohen M.D. Primary Care Physician: Dylon Glover Sr., M.D. MEDICAL IMAGING REPORT This report is preliminary unless electronic signature is present EXAM Frontal abdomen 10/02/2016 INDICATIONS 45-year-old female for G-tube placement. Blocked G tube tonight. TECHNIQUE Frontal abdomen compared with 09/12/2016 FINDINGS The patient is markedly rotated to the right. There is contrast opacification of the stomach and proximal small bowel. No distinct extraluminal contrast identified. Probable food debris at the level of the gastric fundus superimposed over the right hemidiaphragm. Limited study due to rotational factors. IMPRESSION Limited examination demonstrates contrast opacification of the stomach and proximal small bowel. No definite extraluminal extension. Dictated by... Johny Guevara M.D. THIS IS AN ELECTRONICALLY VERIFIED REPORT Johny Guevara M.D. at 10/02/2016 2:01 PM Filipe TD: 10/02/2016 13:23 JOB #: [id number] MEDICAL IMAGING REPORT COPY
[2016-10-03] MEDS ORDERED: NEXIUM20 MG/PACK GT (02:39)
[2016-10-03] MEDS ORDERED: FERROCITE PLUS1 CA1 GT (02:42)
[2016-10-03] MEDS ORDERED: LACTULOSE10 G/15 ML GT (02:43)
[2016-10-03] MEDS ORDERED: OCEAN45 ML (02:46)
[2016-10-03] MEDS ORDERED: DIASTAT ACUDIAL1 KIT PR (02:47)
[2016-10-03] MEDS ORDERED: PAMPRIN MULTI-S1 TAB GT (02:48)
[2016-12-03] MEDS ORDERED: LAMOTRIGINE200 MG GT (02:44)
[2016-12-03] MEDS ORDERED: SENNA CONCENTR8.6 MG PO (02:45)
[2016-12-03] MEDS ORDERED: TYL325 GT (02:48)
[2017-01-11] MEDS ORDERED: KEPPRA500 MG/51 GT (02:40)
[2017-01-11] MEDS ORDERED: KLONOPIN1 M1 GT (02:41)
[2017-01-11] MEDS ORDERED: E.E.S. 200200 MG/51 GT (02:41)
[2017-01-11] MEDS ORDERED: EXPECTORAN100 MG/51 GT (02:43)
[2017-01-11] MEDS ORDERED: MIRALAX17 GM GT (02:44)
[2017-01-11] MEDS ORDERED: NASALIDE INHALE25 ML (02:46)
[2017-01-11] MEDS ORDERED: CLARITIN10 M3 GT (02:48)
[2017-01-11] MEDS ORDERED: SODIUM BICARBO650 MG GT (02:49)
[2017-01-11] MEDS ORDERED: VIOKACE 10,4401 EACH GT (02:50)
[2017-01-11] MEDS ORDERED: BROVANA15 MCG/2 M INH (02:50)
[2017-01-11] MEDS ORDERED: PULMICORT0.5 MG/2 M INH (02:51)
[2017-01-11] MEDS ORDERED: IPRATR-ALBUTEROL3 ML INH (02:51)
== END 2016-10-02 06:44 | disposition home or self-care (01) ==
LOC: CED 04:56
DX: K94.23 Gastrostomy malfunction (principal); Z88.1 Allergy status to other antibiotic agents; Z88.8 Allergy status to other drugs, medicaments and biological substances; Z79.899 Other long term (current) drug therapy
CPT/HCPCS: 74000; 99283

== ENCOUNTER → 2016-10-03 | Outpatient (CLI) | payer MEDICARE, OTHER ==
[~2016-10-03] MED LIST changes: +ACETAMINOPHEN325 MG GT; +DIASTAT ACUDIAL1 KIT PR; +DIASTAT2.5 MG PR; +EXPECTORAN100 MG/51 GT; +FERROCITE PLUS1 CA1 GT; +FYCOMPA2 MG GT; +GAVILYTE-C SO4000 ML GT; +IPRATR-ALBUTEROL3 ML INH; +KEPPRA500 MG GT; +KEPPRA500 MG/51 GT; +KLONOPIN1 M1 GT; +LACTULOSE10 GM/15 M GT; +OCEAN104 ML; +PAMPRIN MAX PA1 EACH GT; +PULMICORT0.5 MG/2 M INH; +ROBAFEN100 MG/5 M GT; +SENNA CONCENTR8.6 MG PO; +SILACE60 MG/15 M GT; +SOD BICARBONATE GT; +SODIUM BICARBO650 MG GT; +TYL325 GT; +VIOKACE 10,4401 EACH GT
--- NOTE | ~2016-10-03 | XA176 ---
[facility] A Service of [facility] RADIOLOGY TEXT RESULTS PATIENT: ADELINA TRIANA LOCATION: CIVR : 71 UNIT #: [id number] AGE: [address]: Dylon Glovre MD SEX: F ORDER DR: [id number] [facility] [address] [place], [place] [address] [id number] O MR#: [id number] Acc #: [id number] NAME: ADELINA TRIANA : 1970 SEX: F STUDY DATE/TIME: 10/03/2016 11:28 UNIT: [facility] ROOM: STUDY DESCRIPTION: XA Perc G-Tube to GJ-Tube Conv Attending Physician: Dylon Glover Sr., M.D. Ordering Physician: Dylon Glover Sr., M.D. Primary Care Physician: Dylon Glover Sr., M.D. MEDICAL IMAGING REPORT This report is preliminary unless electronic signature is present EXAM G-tube to GJ-tube exchange INDICATION 45-year-old female with history of a GJ-tube which had fallen out. It was replaced with a temporary G-tube. A GJ-tube is requested. The fluoro time was 2.6 minutes. The reference air kerma is 11 mGy. The risks, benefits and alternatives of the procedure were discussed with the patient's family advertising account representative and informed consent was obtained. In the procedure room a time-out was performed confirming correct patient and procedure. All elements maximum sterile-barrier technique utilized according to guidelines appropriate for the procedure. TECHNIQUE/FINDINGS Contrast injected through the existing gastrostomy tube and a laser beam cutter image was obtained. The G-tube was removed over a guidewire. Next an angled catheter and guidewire were negotiated into the jejunum. Angled catheter was removed and next a 22-Palestinian GJ-tube was advanced over the guidewire with tip positioned in the jejunum. Contrast injected confirming satisfactory positioning. The gastric retention balloon was filled with 8 mL of sterile water. Patient tolerated the procedure well without immediate complications. IMPRESSION Successful G-tube to GJ-tube exchange. Please schedule patient for preventative maintenance tube exchange in 6-months. Dictated by... Vernon Strauss M.D. THIS IS AN ELECTRONICALLY VERIFIED REPORT [facility] A Service of [facility] RADIOLOGY TEXT RESULTS PATIENT: ADELINA TRIANA LOCATION: [facility] : 71 UNIT #: [id number] AGE: [address]: Dylon Glover MD SEX: F ORDER DR: Vernon Strauss M.D. at 10/03/2016 4:57 PM RUPINDER/ellen TD: 10/03/2016 14:32 JOB #: [id number] MEDICAL IMAGING REPORT COPY
== END | disposition home or self-care (01) ==
LOC: CIVR 09:44
DX: K94.23 Gastrostomy malfunction (principal)
CPT/HCPCS: C1725; C1769; Q9967

== ENCOUNTER 2016-10-08 00:32 | Emergency (ER) | payer MEDICARE, OTHER ==
--- NOTE | ~2016-10-08 | CT4 ---
[facility] A Service of [facility] & [facility] RADIOLOGY TEXT RESULTS PATIENT: ADELINA TRIANA LOCATION: [facility] : 71 UNIT #: [id number] AGE: [address]: Ramiro Nichole MD SEX: F ORDER DR: [id number] [facility] [address] [place], [place] [address] [id number] E MR#: [id number] Acc #: [id number] NAME: ADELINA TRIANA : 1970 SEX: F STUDY DATE/TIME: 10/08/2016 2:17 UNIT: JELLY ROOM: STUDY DESCRIPTION: CT Abd and Pelv Wo Cont Attending Physician: Ramiro Nichole M.D. Ordering Physician: Armin Cohen M.D. Primary Care Physician: Dylon Glover Sr., M.D. MEDICAL IMAGING REPORT This report is preliminary unless electronic signature is present EXAM CT abdomen and pelvis without contrast 10/08/2016 HISTORY 45-year-old female brought to the ED with 3 day history of generalized abdomen pain, constipation and distention. Reportedly nonverbal assisted patient. TECHNIQUE CT examination of abdomen and pelvis was performed with oral contrast only. This CT exam was performed with one or more of the following radiation dose reduction techniques: automatic control, adjustment of mA and/or kV according to patient size, and iterative reconstruction. FINDINGS ABDOMEN FINDINGS: The examination shows generalized dilatation of the air filled colon to the level of the low rectum with no evidence of bowel obstruction. Mild volume colonic stool. GI contrast material is present within small bowel and colon to the level of the rectum. No evidence of mechanical bowel obstruction. No intraperitoneal or retroperitoneal free air. A gastrostomy-jejunostomy tube is in good position, the stomach is decompressed. Liver, pancreas, spleen and kidneys are unremarkable. No evidence of urinary obstruction. No bile duct dilatation. PELVIS FINDINGS: Bladder, uterus, adnexal regions and rectum are unremarkable. No inguinal hernia or abdominal wall hernia. Lung base images show infiltrate and atelectasis in the posterior lung bases, and there is high-density material within the right posterior lung base, likely representing previously aspirated barium. This was present on chest CT 07/22/2016 and should not be acute. [facility] A Service of [facility] & [facility] RADIOLOGY TEXT RESULTS PATIENT: ADELINA TRIANA LOCATION: JELLY : 71 UNIT #: [id number] AGE: [address]: Ramiro Nichole MD SEX: F ORDER DR: IMPRESSION 1. Generalized dilatation of air filled colon to the level of the low rectum. GI contrast material is present throughout small bowel and colon to the level of the low rectum with no evidence of mechanical bowel obstruction. Small to moderate volume stool throughout the colon. 2. Well positioned gastrostomy-jejunostomy tube. The stomach is decompressed. 3. Chronic barium aspiration in the posterior right lower lobe. This was present on an older chest CT of 07/22/2016. There is mild infiltrate and atelectasis in both posterior lung bases. Dictated by... Parish Mireles M.D. THIS IS AN ELECTRONICALLY VERIFIED REPORT Parish Mireles M.D. at 10/09/2016 5:30 AM TRESSA/david TD: 10/09/2016 00:46 JOB #: [id number] MEDICAL IMAGING REPORT COPY
[~2016-10-08 00:32] MED LIST changes: -ACETAMINOPHEN325 MG GT; -DIASTAT2.5 MG PR; -EXPECTORAN100 MG/51 GT; -FYCOMPA2 MG GT; -GAVILYTE-C SO4000 ML GT; -IPRATR-ALBUTEROL3 ML INH; -KEPPRA500 MG GT; -KEPPRA500 MG/51 GT; -KLONOPIN1 M1 GT; -LACTULOSE10 GM/15 M GT; -OCEAN104 ML; -PAMPRIN MAX PA1 EACH GT; -PULMICORT0.5 MG/2 M INH; -ROBAFEN100 MG/5 M GT; -SENNA CONCENTR8.6 MG PO; -SILACE60 MG/15 M GT; -SOD BICARBONATE GT; -SODIUM BICARBO650 MG GT; -TYL325 GT; -VIOKACE 10,4401 EACH GT
[2016-12-03] MEDS ORDERED: LAMOTRIGINE200 MG GT (02:44)
[2016-12-03] MEDS ORDERED: SENNA CONCENTR8.6 MG PO (02:45)
[2016-12-03] MEDS ORDERED: TYL325 GT (02:48)
[2017-01-11] MEDS ORDERED: KEPPRA500 MG/51 GT (02:40)
[2017-01-11] MEDS ORDERED: KLONOPIN1 M1 GT (02:41)
[2017-01-11] MEDS ORDERED: E.E.S. 200200 MG/51 GT (02:41)
[2017-01-11] MEDS ORDERED: EXPECTORAN100 MG/51 GT (02:43)
[2017-01-11] MEDS ORDERED: MIRALAX17 GM GT (02:44)
[2017-01-11] MEDS ORDERED: NASALIDE INHALE25 ML (02:46)
[2017-01-11] MEDS ORDERED: CLARITIN10 M3 GT (02:48)
[2017-01-11] MEDS ORDERED: SODIUM BICARBO650 MG GT (02:49)
[2017-01-11] MEDS ORDERED: BROVANA15 MCG/2 M INH (02:50)
[2017-01-11] MEDS ORDERED: VIOKACE 10,4401 EACH GT (02:50)
[2017-01-11] MEDS ORDERED: PULMICORT0.5 MG/2 M INH (02:51)
[2017-01-11] MEDS ORDERED: IPRATR-ALBUTEROL3 ML INH (02:51)
== END 2016-10-08 05:16 | disposition home or self-care (01) ==
LOC: CED 00:32
DX: Z03.89 Encounter for observation for other suspected diseases and conditions ruled out (principal); Z88.8 Allergy status to other drugs, medicaments and biological substances; Z79.899 Other long term (current) drug therapy
CPT/HCPCS: 74176; 99284

== ENCOUNTER 2016-10-20 17:45 | Emergency (ER) | payer MEDICARE, OTHER ==
--- NOTE | ~2016-10-20 | CR72 ---
[facility] A Service of [facility] RADIOLOGY TEXT RESULTS PATIENT: ADELINA TRIANA LOCATION: [facility] : 71 UNIT #: [id number] AGE: [address]: Kade Augustine MD SEX: F ORDER DR: [id number] [facility] [address] [place], [place] [address] [id number] E MR#: [id number] Acc #: [id number] NAME: ADELINA TRIANA : 1970 SEX: F STUDY DATE/TIME: 10/20/2016 18:52 UNIT: JELLY ROOM: STUDY DESCRIPTION: CR Chest Single View Portable Attending Physician: Kade Augustine M.D. Ordering Physician: Kade Augustine M.D. Primary Care Physician: Dylon Glover Sr., M.D. MEDICAL IMAGING REPORT This report is preliminary unless electronic signature is present EXAM AP view of the chest COMPARISON September 12, 2016, September 09, [address] abdomen and pelvis with IV contrast today, October 20, 2016. INDICATIONS 45-year-old female with leukocytosis for 3 days. The patient is mentally impaired and cannot give more history. FINDINGS Left chest vagal nerve stimulator is again noted, not significantly changed from comparison. No evidence of pneumothorax or significant pleural effusion. Patient is slumped to the left and there appear to be increased plate-like left basilar opacities, favoring atelectasis. Cardiomediastinal silhouette is within normal limits. Similar appearing gaseous distension of bowel loops in the left upper quadrant of the abdomen. Percutaneous feeding tube is incompletely imaged. IMPRESSION New left basilar atelectasis versus pneumonia. No evidence of pleural effusion. Dictated by... Dewey Daley M.D. THIS IS AN ELECTRONICALLY VERIFIED REPORT Dewey Daley M.D. at 10/24/2016 9:09 PM BLM/psc TD: 10/20/2016 22:10 [facility] A Service of [facility] RADIOLOGY TEXT RESULTS PATIENT: ADELINA TRIANA LOCATION: [facility] : 71 UNIT #: [id number] AGE: [address]: Kade Augustine MD SEX: F ORDER DR: JOB #: [id number] MEDICAL IMAGING REPORT Page 1 of 1 COPY
--- NOTE | ~2016-10-20 | CT4 ---
[facility] A Service of [facility] & [facility] RADIOLOGY TEXT RESULTS PATIENT: ADELINA TRIANA LOCATION: JELLY : 71 UNIT #: [id number] AGE: [address]: Kade Augustine MD SEX: F ORDER DR: [id number] [facility] [address] [place], [place] [address] [id number] E MR#: [id number] Acc #: [id number] NAME: ADELINA TRIANA : 1970 SEX: F STUDY DATE/TIME: 10/20/2016 19:28 UNIT: JELLY ROOM: STUDY DESCRIPTION: CT Abd and Pelv Wo Cont Attending Physician: Kade Augustine M.D. Ordering Physician: Kade Augustine M.D. Primary Care Physician: Dylon Glover Sr., M.D. MEDICAL IMAGING REPORT This report is preliminary unless electronic signature is present EXAM CT abdomen and pelvis without contrast HISTORY Abdomen pain for [address] abdomen and pelvis was performed without contrast. This CT exam was performed with one or more of the following radiation dose reduction techniques: Automatic exposure control, adjustment of mA and/or kV according to patient size, and iterative reconstruction. CT ABDOMEN: Moderate infiltrate in the inferior left lower lobe is new, compared to 10/08/2016, although there has been partial clearing of the subsegmental atelectasis in the inferior left lower lobe. There has also been near-complete clearing of subsegmental atelectasis in the inferior lingula. Chronic barium aspiration in the posterior right lower lobe is stable. There is moderate distension of gas-filled small and large bowel throughout the abdomen. The transverse colon measures 6 cm in diameter. The cecum measures approximately 9.5 cm in diameter. Findings favor generalized colonic ileus. Gastrostomy tube extends into the duodenum and subsequently into the jejunum, terminating in the lateral left abdomen. The liver, gallbladder, spleen, pancreas, kidneys, and adrenal glands are normal. Normal caliber abdominal aorta. No ascites. CT PELVIS: Moderate amount of stool in the moderately distended rectum. The degree of colonic and rectal distension is similar to 10/08/2016. No free fluid. The uterus and adnexa are unremarkable. IMPRESSION 1. Stable moderate generalized distension of the colon and rectum, compared to 10/08/2016, suggesting generalized ileus. 2. No small bowel dilatation. [facility] A Service of [facility] RADIOLOGY TEXT RESULTS PATIENT: ADELNIA TRIANA LOCATION: [facility] : 71 UNIT #: [id number] AGE: [address]: Kade Augustine MD SEX: F ORDER DR: 3. Increased airspace infiltrate in the inferior left lower lobe, with interval partial clearing of multifocal subsegmental atelectasis in the inferior left lower lobe. 4. Chronic barium aspiration in the posterior right lower lobe. Dictated by... Garcia Das M.D. THIS IS AN ELECTRONICALLY VERIFIED REPORT Garcia Das M.D. at 10/21/2016 12:05 AM DFL/fadumo TD: 10/20/2016 23:13 JOB #: [id number] MEDICAL IMAGING REPORT Page 1 of 1 COPY
[2016-10-20 18:58] LABS: BASOPHIL# 0.1 X10e3 (0-0.3); BASOPHIL% 0.7 % (0-2.5); EOSINOPHIL# 0.8 X10e3 (0-0.7); EOSINOPHIL% 7.6 % (0.0-7.0); LYMPHOCYTE# 1.3 X10e3 (1.0-3.5); LYMPHOCYTE% 12.3 % (17.0-45.0); MEAN CELL VOLUME 95.7 FL (83-96); MEAN CORPUSCULAR HEMOGLOBIN 31.1 PG (28-34); MEAN CORPUSCULAR HGB CONC 32.4 g/dL (30-36); MEAN PLATELET VOLUME 11.2 FL (6.5-11.5); MONOCYTE# 0.5 X10e3 (0-1.0); MONOCYTE% 4.3 % (3.0-12.0); NEUTROPHIL% 75.1 % (40-75); PLATELET COUNT 207 X10e3 (140-420); RED BLOOD COUNT 3.86 X10e (3.90-5.30); RED CELL DISTRIBUTION WIDTH 15.2 % (11.0-15.5); WHITE BLOOD COUNT 10.6 X10e3 (4.0-10.5)
[2016-10-20 19:02] LABS: DIFF IND NO
[2016-10-20 19:24] LABS: ALBUMIN SERUM 3.6 g/dL (3.5-5.0); BILIRUBIN, DIRECT 0.1 mg/dL (0.0-0.2); BILIRUBIN,INDIRECT 0.1 mg/dL (0.0-0.9); BILIRUBIN,TOTAL 0.2 mg/dL (0.2-2.0); CALCIUM SERUM 9.3 mg/dL (8.4-10.2); CREATININE SERUM 0.6 mg/dL (0.6-1.4); GLOM FILT RATE Estimated 110.9 mL/min (>60); POTASSIUM 4.4 mmol/L (3.5-5.1); PROTEIN TOTAL SERUM 7.3 g/dL (6.0-8.3)
[2016-10-20 19:30] LABS: URINE SOURCE CLEAN CATCH
[2016-10-20 19:44] LABS: URINE APPEARANCE SL HAZY; URINE BILIRUBIN NEG (NEG); URINE BLOOD NEG (NEG); URINE COLOR YELLOW; URINE GLUCOSE NORM (NORM); URINE KETONE NEG (NEG); URINE LEUKOCYTE ESTERASE 2+ (NEG); URINE NITRATE NEG (NEG); URINE PROTEIN NEG (NEG); URINE SPECIFIC GRAVITY 1.005 (1.003-1.035); URINE UROBILINOGEN NORM (NORM)
[2016-10-20 19:57] LABS: CULTURE INDICATED? YES; URBCS1 AUWI 0-2 /[HPF] (0-2); URINE BACTERIA AUWI 1+ (NEGATIVE); URINE SQUAMOUS EPITHELIAL CELL OCCAS /[HPF]
[2016-12-03] MEDS ORDERED: LAMOTRIGINE200 MG GT (02:44)
[2016-12-03] MEDS ORDERED: SENNA CONCENTR8.6 MG PO (02:45)
[2016-12-03] MEDS ORDERED: TYL325 GT (02:48)
[2017-01-11] MEDS ORDERED: KEPPRA500 MG/51 GT (02:40)
[2017-01-11] MEDS ORDERED: E.E.S. 200200 MG/51 GT (02:41)
[2017-01-11] MEDS ORDERED: KLONOPIN1 M1 GT (02:41)
[2017-01-11] MEDS ORDERED: EXPECTORAN100 MG/51 GT (02:43)
[2017-01-11] MEDS ORDERED: MIRALAX17 GM GT (02:44)
[2017-01-11] MEDS ORDERED: NASALIDE INHALE25 ML (02:46)
[2017-01-11] MEDS ORDERED: CLARITIN10 M3 GT (02:48)
[2017-01-11] MEDS ORDERED: SODIUM BICARBO650 MG GT (02:49)
[2017-01-11] MEDS ORDERED: VIOKACE 10,4401 EACH GT (02:50)
[2017-01-11] MEDS ORDERED: BROVANA15 MCG/2 M INH (02:50)
[2017-01-11] MEDS ORDERED: IPRATR-ALBUTEROL3 ML INH (02:51)
[2017-01-11] MEDS ORDERED: PULMICORT0.5 MG/2 M INH (02:51)
== END 2016-10-20 22:30 | disposition home or self-care (01) ==
LOC: CED 17:45
PROVIDERS: Emergency Medicine
DX: Z71.1 Person with feared health complaint in whom no diagnosis is made (principal); J45.909 Unspecified asthma, uncomplicated; Z79.899 Other long term (current) drug therapy; Z88.1 Allergy status to other antibiotic agents; Z88.8 Allergy status to other drugs, medicaments and biological substances
CPT/HCPCS: 71010; 74176; 80048; 80076; 81003; 83690; 84703; 85025; 87086; 87088; 87186; 96372; 99284; J0696

== ENCOUNTER → 2017-01-11 | Outpatient (CLI) | payer MEDICARE, OTHER ==
[~2017-01-11] MED LIST changes: +ACETAMINOPHEN325 MG GT; +DIASTAT2.5 MG PR; +EXPECTORAN100 MG/51 GT; +FYCOMPA2 MG GT; +GAVILYTE-C SO4000 ML GT; +IPRATR-ALBUTEROL3 ML INH; +KEPPRA500 MG GT; +KEPPRA500 MG/51 GT; +KLONOPIN1 M1 GT; +LACTULOSE10 GM/15 M GT; +OCEAN104 ML; +PAMPRIN MAX PA1 EACH GT; +PULMICORT0.5 MG/2 M INH; +ROBAFEN100 MG/5 M GT; +SENNA CONCENTR8.6 MG PO; +SILACE60 MG/15 M GT; +SOD BICARBONATE GT; +SODIUM BICARBO650 MG GT; +TYL325 GT; +VIOKACE 10,4401 EACH GT
--- NOTE | ~2017-01-11 | XA189 ---
[facility] A Service of [facility] RADIOLOGY TEXT RESULTS PATIENT: ADELINA TRIANA LOCATION: : 72 UNIT #: [id number] AGE: [address]: Dylon Glover MD SEX: F ORDER DR: [id number] [id number] [facility] [place], [place] [address] [id number] O MR#: [id number] Acc #: [id number] NAME: ADELINA TRIANA : 1970 SEX: F STUDY DATE/TIME: 01/11/2017 15:02 UNIT: ROOM: STUDY DESCRIPTION: XA Replace GJ Tube Attending Physician: Dylon Glover Sr., M.D. Referring Physician: Dylon Glover Sr., M.D. Ordering Physician: Dylon Glover Sr., M.D. Primary Care Physician: Dylon Glover Sr., M.D. MEDICAL IMAGING REPORT This report is preliminary unless electronic signature is present EXAM Gastrojejunostomy tube exchange. HISTORY This patient is a [place] patient who has a history of a gastrojejunostomy tube, most recently changed in September of 2016. There was concern that her jejunostomy tube had retracted into the stomach and replacement was requested. PROCEDURE The procedure was explained to the patient's employment program representative including risks, benefits, potential complications, and potential for alternative forms of treatment. Informed consent was obtained and prior to initiating the procedure a formal time-out procedure was performed. Using all elements maximal sterile barrier technique including hand hygiene, caps, sterile gowns, gloves and masks; the upper abdomen was prepped with 2% chlorhexidine for cutaneous antisepsis and covered with a large sterile sheet. Contrast was given through the which confirmed location within the stomach. Contrast was then instilled into the jejunostomy port. Tip of the catheter did appear to be located within the duodenum but was located very proximally. At this point, a stiff Glidewire was advanced through the catheter and further into the duodenum. Catheter was retracted over the wire and a new gastrojejunostomy catheter was advanced over the wire and positioned within the third portion of the duodenum. Position was confirmed with radiographic image. Total fluoroscopy time was 1.7 minutes. A total of 3 fluoroscopic images were obtained. Moderate sedation was provided to the patient. I supervised the IV IR nurse monitored the patient's vital signs for a total of 17 minutes of face to face time. [facility] A Service of [facility] RADIOLOGY TEXT RESULTS PATIENT: ADELINA TRIANA LOCATION: : 71 UNIT #: [id number] AGE: [address]: Dylon Glover MD SEX: F ORDER DR: LAURO Patient's preexisting gastrojejunostomy catheter appear to terminate within the proximal duodenum. Due to redundancy of the catheter, which was found with within the fundus of the stomach, catheter could only be advanced into the third portion of the duodenum. This was discussed with the patient's nurse at [place]. Fluoroscopy was used during the procedure and permanent images were saved. Dictated by... Tatiana Joseph M.D. THIS IS AN ELECTRONICALLY VERIFIED REPORT Tatiana Joseph M.D. at 01/12/2017 4:41 PM AFF/pc TD: 01/12/2017 11:21 JOB #: [id number] MEDICAL IMAGING REPORT Page 1 of 1 COPY
== END | disposition home or self-care (01) ==
LOC: EDBD 12:36 → CSSDAY 12:36
DX: K94.23 Gastrostomy malfunction (principal)
CPT/HCPCS: C1769; J2250; J3010; Q9967

== ENCOUNTER 2017-01-24 11:39 | Observation (INO) | payer MEDICARE, OTHER ==
--- NOTE | ~2017-01-24 | OR ---
Unit #: [id number] #: [id number] Patient: ADELINA TRIANA [id number] [facility] [facility] [place], [place] [address] [id number] I MR#: [id number] NAME: ADELINA TRIANA ROOM: 240 Date of Procedure: 01/25/2017 Admission Date: 01/24/2017 Surgeon: Kale Davenport M.D. : 1970 Attending Physician: Sharmila Berry M.D. Primary Care Physician: Dylon Glover Sr., M.D. OPERATIVE REPORT PROCEDURES PERFORMED Esophagogastroduodenoscopy with gastrojejunal feeding tube placement. INDICATIONS FOR PROCEDURE A 46-year-old female with cerebral palsy, feeding tube dependent, has been poorly tolerant of gastric feeding and had a gastrojejunal feeding tube placed. In the past, the tube was pulled into the stomach. She was not tolerating food and Gastrografin study suggests the tube is in the stomach, hence needed replacement. MEDICATIONS Monitored anesthesia. POSTOPERATIVE FINDINGS 1. The tube was curled in the stomach, which was pulled out. 2. A new 18-Kazakh 30 cm gastrojejunal dual-port tube was pushed through the existing ostomy and pulled along with the scope with the help of a hemoclip into the proximal duodenal area where it was hemoclipped. The scope was gently pulled out. Gastric balloon was filled. 3. Evidence of mild gastritis. 4. Rest of the scope exam was normal. PLAN Restart feeding and medications. DESCRIPTION OF PROCEDURE The patient was explained of the procedure, risks, and benefits. Informed consent was obtained from labor conciliator/power of attorney recruiter. She was brought to the endoscopy room. Monitored anesthesia was given. We used a pediatric colonoscope for the procedure, which was passed down the mouth into esophagus, stomach, duodenum, and distal duodenum. The exam was completed. Existing tube was pulled out and new tube was pushed through the existing ostomy and pulled along with the scope into proximal duodenum, where it was hemoclipped. The scope was gently pulled out. Gastric balloon was filled under observation. External bumper was placed. The scope was then gently pulled out of the patient's mouth. She tolerated it well. No major complications were seen. Dictated by... Kale Davenport M.D. Unit #: [id number] #: [id number] Patient: ADELINA TRIANA JOSUE/zacarias TD: 01/25/2017 10:36 JOB #: [id number] CC: Dr. Funez OPERATIVE REPORT Page 1 of 1 X Kale Davenport MD PROCEDURE OPERATIVE NOTE
--- NOTE | ~2017-01-24 | CR2 ---
[facility] A Service of [facility] RADIOLOGY TEXT RESULTS PATIENT: ADELINA TRIANA LOCATION: C2A 240 : 72 UNIT #: [id number] AGE: [address]: Sharmila Berry MD SEX: F ORDER DR: [id number] [facility] [address] [place], [place] [address] [id number] I MR#: [id number] Acc #: [id number] NAME: ADELINA TRIANA : 1970 SEX: F STUDY DATE/TIME: 01/24/2017 12:10 UNIT: C2A ROOM: 240 STUDY DESCRIPTION: CR Abdomen Acute Series Attending Physician: Sharmila Berry M.D. Ordering Physician: Rowan Vivas M.D. Primary Care Physician: Dylon Glover Sr., M.D. MEDICAL IMAGING REPORT This report is preliminary unless electronic signature is present EXAM Acute abdominal series HISTORY 46-year-old female with abdominal pain, onset today. COMPARISON 10/02/2016 FINDINGS PA upright view of the chest demonstrates no acute cardiopulmonary disease. There is a small amount of left basilar atelectasis. Probable neural stimulator noted overlying the left anterior chest. Bowel gas pattern demonstrates increased small and large bowel gas, nonspecific, could reflect ileus. No evidence of a high-grade obstruction. No organomegaly. Suspected feeding tube overlying the mid abdomen. No abnormal masses or calcifications. Osseous structures demonstrate osteopenia with deformity of both hips may reflect chronic nonweightbearing or immobility. IMPRESSION Increased small and large bowel gas in a nonspecific pattern but suggestive of ileus. No evidence of a high-grade obstruction. Suspected feeding tube in expected position. Dictated by... Carolee Strauss M.D. THIS IS AN ELECTRONICALLY VERIFIED REPORT Carolee Strauss M.D. at 01/25/2017 12:31 PM LEONARDO/fadumo [facility] A Service [facility] RADIOLOGY TEXT RESULTS PATIENT: ADELINA TRIANA LOCATION: C2A : 71 UNIT #: [id number] AGE: [address]: Sharmila Berry MD SEX: F ORDER DR: TD: 01/25/2017 00:16 JOB #: [id number] MEDICAL IMAGING REPORT Page 1 of 1 COPY
--- NOTE | ~2017-01-24 | CR6 ---
[facility] A Service of [facility] & [facility] RADIOLOGY TEXT RESULTS PATIENT: ADELINA TRIANA LOCATION: C2A 240-01 : 72 UNIT #: [id number] AGE: [address]: Sharmila Berry MD SEX: F ORDER DR: [id number] [facility] [address] [place], [place] [address] [id number] I MR#: [id number] Acc #: [id number] NAME: ADELINA TRIANA : 1970 SEX: F STUDY DATE/TIME: 01/24/2017 13:15 UNIT: C2A ROOM: 240 STUDY DESCRIPTION: CR Abdomen Portable Sng View Attending Physician: Sharmila Berry M.D. Ordering Physician: Rowan Vivas M.D. Primary Care Physician: Dylon Glover Sr., M.D. MEDICAL IMAGING REPORT This report is preliminary unless electronic signature is present EXAM Single view abdomen. HISTORY G-tube check, 30 mL of Gastrografin following 15 mL of saline injected. COMPARISON 01/24/2017, abdominal films. FINDINGS Single view of the abdomen demonstrates positive contrast within the stomach and proximal small bowel consistent with the history of recent Gastrografin injection. Calcific density projects over the liver which was present on the precontrast study and may represent pleural or parenchymal calcifications. The findings would suggest appropriate positioning of the G tube but. No free air identified. Dictated by... Carolee Strauss M.D. THIS IS AN ELECTRONICALLY VERIFIED REPORT Carolee Strauss M.D. at 01/25/2017 12:31 PM Joaquina TD: 01/25/2017 00:45 JOB #: [id number] MEDICAL IMAGING REPORT Page 1 of 1 COPY
--- NOTE | ~2017-01-24 | A ---
[facility] Nutrition Therapy DATE: 01/25/17 Patient: ADELINA TRIANA Physician: DOC Address: [address] [facility] Room/Bed: [address] [place] [address], Zip: [place] [address] Admit Date: 01/24/17 Date of : [birth year] Height: 5 5 Weight: 110 50 NUTRITIONAL ASSESSMENT: REASON: PT SEEN FOR LOW BMI + DX + 2 NUTRITION RISK PT RE: HOME ENTERAL NUTRITION SUPPORT ALSO RD CONSULT PT IS 46 Y.O. FEMALE ADMITTED FOR DISLODGED G TUBE PMH: [facility]WAY[facility] PT, NONVERBAL, PROFOUND MENTAL RETARDATION, CEREBRAL PALSY, GERD, DYSPHAGIA S/P PEG PLACEMENT, RECURRENT ASPIRATION PNA, RESP FAILURE, SEIZURE DISORDER Anthropometrics: 65 INCHES PER DEWAYNE NOTES, WT: 110# (50 KG), BMI: 18.3, 88%IBW Labs: WNL Meds: LACTULOSE, MIRALAX, PROTONIX, NACL I/O & Bowel function: -/4 Skin Integrity: HEALED SURGICAL SCARS NECK/CHEST/ABD Estimated Nutrition Needs: 2656-3634 KCAL (28-32 KCAL/KG BW) 60-75 G PRO (1.2-1.5 G PRO/KG BW) FLUIDS CONSISTENT W/KCAL NEEDS OR MANAGE PER MD Assessment: CHART REVIEWED AND EVENTS NOTED. PT SEEN FOR LOW BMI + DX + 2 NUTRITION RISK PT RE: HOME ENTERAL NUTRITION SUPPORT. PT NON-VERBAL. PT IS WELL-KNOWN TO RDs HERE WITH MULTIPLE ADMISSIONS FOR RECURRENT ASPIRATION PNA. PER PREVIOUS RD NOTE IN AUG 2016, PT WAS RECEIVING OSMOLITE 1.2 PREVIOUSLY. PER DEWAYNE NOTES, PT RECEIVING HOME ENTERAL NUTRITION SUPPORT OF ISOSOURCE HN @ 80 ML/HR FROM 7A-9P (14 HOURS). [facility] DOES NOT PROVIDE ISOSOURCE HN.OSMOLITE 1.5 BEST ALTERNATIVE NO SITTER IN ROOM AT TIME OF VISIT. RD TO FOLLOW AND MAKE RECOMMENDATIONS BELOW. -HOME EN PROVIDES 1680 KCAL, 70 G PRO, 851 ML FREE H20 Dx: INADEQUATE ORAL INTAKE R/T DYSPHAGIA AEB G-TUBE IN PLACE, HOME EN. Intervention: 1. NPO 2. RD CONSULT Monitoring, Evaluation and Goals: 1. ENTERAL NUTRITION; ONCE INITIATED, PROVIDE >80% TOTAL VOLUME X 24 HOURS 2. LABS; WNL 3. WEIGHTS; PREVENT ANY FURTHER WEIGHT LOSS; PROMOTE GRADUAL WEIGHT GAIN TOWARDS HEALTHY BMI [facility] Nutrition Therapy DATE: 01/25/17 Patient: ADELINA TRIANA Physician: DOC Address: [address] [facility] Room/Bed: [address] [place] [address], Zip: [place] [address] Admit Date: 01/24/17 Date of : [birth year] Height: 5 5 Weight: 110 50 MONITOR: -TF INITIATION -TF RATE/RESIDUALS -WEIGHTS Recommendations: 1. RECOMMEND TO BEGIN OSMOLITE 1.5 @ 30 ML/HR, ADVANCE 10 ML q 6 HOURS TO GOAL RATE OF 45 ML/HR -PROVIDES 1620 KCAL, 68 G PRO, 821 ML FREE H20 ADD FREE H20 FLUSHES OF 200 ML QID TO MEET PT'S CURRENT ESTIMATED FLUID NEEDS OR MANGE PER MD 2. ENSURE HOB IS UPRIGHT AT MINIMUM OF 40 DEGREES DURING ENTERAL NUTRITION ADMINISTRATION (24 HOURS) RD WILL F/U PER PROTOCOL PT IS MILD/MODERATLEY COMPROMISED Respectfully, RENUKA PRICE MS, RD, LD Food and Nutrition[facility] Services [facility] cc: client file
--- NOTE | ~2017-01-24 | HP ---
Unit #: [id number] #: [id number] Patient: ADELINA GORDON [id number] [facility] [address] [place], [place] [address] [id number] I MR#: [id number] NAME: ADELINA GORDON ROOM: 240 Age: 46 Sex: F Admission Date: 01/24/2017 : 1970 Attending Physician: Sharmila Berry M.D. Primary Care Physician: Dylon Glover Sr., M.D. HISTORY AND PHYSICAL CHIEF COMPLAINT Dislodged GJ tube. HISTORY OF PRESENT ILLNESS Ms. Gordon is a 46-year-old female, who is very well known to me from multiple admissions. Patient is a resident of [place], was transferred to [facility] ER because of migration of the J tube. RN noted J tube feedings coming out of G tube. They stopped the feeding and patient was transferred here. There were no other complaints. There was no fever, chills, or rigors. There was no complaint of respiratory distress. No complaint of vomiting. Patient is not able to provide any history. Most of the history has been taken from ER notes. PAST MEDICAL HISTORY 1. History of profound mental retardation. 2. Seizure disorder. 3. Gastroesophageal reflux. 4. Dysphagia, status post GJ tube. 5. Multiple pneumonias in the past. PAST SURGICAL HISTORY 1. History of laparotomy. 2. History of PEG and GJ tube placement. ALLERGIES Depakote, Topamax, Avelox, Prolia, and vancomycin. FAMILY HISTORY Not significant. SOCIAL HISTORY Patient is a resident of [facility]. REVIEW OF SYSTEMS As per history of presenting illness. There is a sitter at the bedside who works in the [facility] and knows the patient very well. According to the sitter, there are no other symptoms going on. They just noticed that feeding was coming out G tube, most likely there has been migration. PHYSICAL EXAMINATION GENERAL: Patient is being evaluated in ER, bed 8. VITAL SIGNS: Blood pressure 98/52, respiratory rate 16, pulse 52, temperature 98.1, oxygen saturation 98%. Unit #: [id number] #: [id number] Patient: ADELINA GORDON HEENT: Head is normocephalic. NECK: Supple. CHEST: Fair air entry. No additional sounds. CARDIOVASCULAR: S1, S2 positive. Regular rhythm. ABDOMEN: Soft. EXTREMITIES: Negative edema. CENTRAL NERVOUS SYSTEM: The patient is nonverbal. DIAGNOSTIC STUDIES LABORATORY: Lab workup is pending. ASSESSMENT The patient is being admitted to med/surg unit with: 1. Dislodged gastrojejunal tube and possible migration. 2. Hypotension. 3. Seizure disorder. 4. Profound mental retardation. 5. Gastroesophageal reflux disease. PLAN Admit to med/surg. Dr. Davenport has been consulted. The patient will be NPO. Protonix IV 40 mg daily. Keppra 1500 mg IV b.i.d. Ativan 1 mg IV q.6 p.r.n. for agitation. MEDICATIONS Please note, home medications are: 1. Diastat 5-10 mg daily. 2. Claritin 10 mg daily. 3. Keppra 1500 mg twice a day. 4. Lamictal 200 mg twice a day. 5. Klonopin 1 mg four times a day. 6. Guaifenesin 20 mL every six hours. 7. Fycompa one tablet at bedtime. 8. Lactulose 45 mL three times a day. 9. Nexium 15 mL daily. 10. [place] daily. 11. Sodium bicarbonate 10 g daily. 12. Acetaminophen 325 mg q.8. 13. Pamprin q.8 p.r.n. Will confirm the code status. Last admission, code status was DNR. Dictated by Lucina Pinedo TD: 01/24/2017 18:13 JOB #: [id number] Unit #: [id number] #: [id number] Patient: ADELINA GORDON HISTORY AND PHYSICAL Page 1 of 1 X Sharmila Berry MD HISTORY AND PHYSICAL
--- NOTE | ~2017-01-24 | CR72 ---
[facility] A Service of [facility] & [facility] RADIOLOGY TEXT RESULTS PATIENT: ADELINA TRIANA LOCATION: C2A 240-01 : [birth year] UNIT #: [id number] AGE: [address]: Sharmila Berry MD SEX: F ORDER DR: [id number] [facility] [address] [place], [place] [address] [id number] MR#: [id number] Acc #: [id number] NAME: ADELINA TRIANA : 1970 SEX: F STUDY DATE/TIME: 01/24/2017 22:21 UNIT: C2A ROOM: 240 STUDY DESCRIPTION: CR Chest Single View Portable Attending Physician: Sharmila Berry M.D. Ordering Physician: Sharmila Berry M.D. Primary Care Physician: Dylon Glover Sr., M.D. MEDICAL IMAGING REPORT This report is preliminary unless electronic signature is present EXAM Single view chest. INDICATIONS PICC placement. FINDINGS Single portable AP view of the chest compared to 10/20/2016. Right PICC terminates over the SVC. There is a neurostimulator device over the left chest wall. Heart and mediastinal contours are unchanged. No new pulmonary opacities. There is resolved left lower lobe airspace opacity since the 10/20/2016 comparison. IMPRESSION 1. No acute cardiopulmonary findings. 2. Right PICC terminates over the SVC. Dictated by... Johnson Walker M.D. THIS IS AN ELECTRONICALLY VERIFIED REPORT Johnson Walker M.D. at 01/25/2017 11:41 PM RPC/erika TD: 01/25/2017 10:37 JOB #: [id number] MEDICAL IMAGING REPORT Page 1 of 1 COPY
--- NOTE | ~2017-01-24 | DS ---
Unit #: [id number] #: [id number] Patient: ADELINA TRIANA [id number] [address] [place], [place] [address] [id number] I MR#: [id number] NAME: ADELINA TRIANA ROOM: 240 Age: Sex: F Admission Date: 01/24/2017 : 1970 Discharge Date: 01/25/2017 Attending Physician: Sharmila Berry M.D. Primary Care Physician: Dylon Glover Sr., M.D. DISCHARGE SUMMARY DISCHARGE DIAGNOSES 1. Dislodged gastric tube, status post revision with esophagogastroduodenoscopy per gastrointestinal. Okay to be discharged. 2. History of profound mental retardation. 3. History of seizure disorder. 4. Dysphagia on tube feeds. 5. History of gastroesophageal reflux disease. DISCHARGE MEDICATIONS 1. Diastat 5-10 mg per rectum p.r.n. for seizures. 2. Klonopin 1 mg p.o. q.i.d. p.r.n. for anxiety. 3. Lamictal 200 mg per G-tube b.i.d. 4. Sodium bicarbonate 10 g per G-tube daily as needed. 5. Lactulose 45 mL per G-tube t.i.d. 6. Tylenol p.r.n. 7. Flonase spray b.i.d. 8. Keppra 150 mg per G-tube b.i.d. 9. Fycompa one tablet per G-tube at bedtime. 10. Claritin 10 mg daily. 11. Colace 20 mL per G-tube b.i.d. 12. CzcnLubv-J-K solution daily. 13. Amylase, lipase, and protease established two tablet daily. 14. Robafen 20 mL per G-tube q.6 hour. 15. Erythromycin 12 mg per G-tube b.i.d. 16. Pamprin 1 tablet q.8 hours. 17. Nexium 50 mL daily. 18. [place] daily. DISPOSITION Going back to group home at [place]. FOLLOWUP Followup with primary care, Dr. Berry. CONSULTANTS Dr. Davenport, GI. DIAGNOSTIC STUDIES IMAGING STUDIES: Chest x-ray - no acute cardiopulmonary findings. Abdominal series - appropriate position with G-tube. No free air. HISTORY OF PRESENT ILLNESS/HOSPITAL COURSE Unit #: [id number] #: [id number] Patient: ADELINA TRIANA Please refer to H and P done by my colleague for initial presentation on this female. ACTIVE PROBLEMS BY DIAGNOSIS Clogged G-tube: Patient was admitted and evaluated by GI and underwent the revision, now G-tube in the okay position, stable from a GI standpoint to be discharge. History of mental retardation. History of seizure disorder: Continue home meds. Dysphagia: Continue tube feeds. History of GERD: Continue Nexium. Dictated by... Lucina Tadeo/aubrey TD: 01/26/2017 07:15 JOB #: [id number] DISCHARGE SUMMARY Page 1 of 1 X Varinder Brown MD X DISCHARGE SUMMARY
[~2017-01-24 11:39] MED LIST changes: -ACETAMINOPHEN325 MG GT; -DIASTAT2.5 MG PR; -FYCOMPA2 MG GT; -GAVILYTE-C SO4000 ML GT; -KEPPRA500 MG GT; -LACTULOSE10 GM/15 M GT; -OCEAN104 ML; -PAMPRIN MAX PA1 EACH GT; -ROBAFEN100 MG/5 M GT; -SILACE60 MG/15 M GT; -SOD BICARBONATE GT
[2017-01-24] MEDS ORDERED: KEPPRA500 M2 GT (15:21)
[2017-01-24] MEDS ORDERED: ROBAFEN100 MG/5 M GT (15:22)
[2017-01-24] MEDS ORDERED: KLONOPIN1 MG GT (15:22)
[2017-01-24] MEDS ORDERED: LAMOTRIGINE200 MG GT (15:22)
[2017-01-24] MEDS ORDERED: FYCOMPA2 MG GT (15:23)
[2017-01-24] MEDS ORDERED: E.E.S. 200200 MG/51 GT (15:24)
[2017-01-24] MEDS ORDERED: LACTULOSE10 GM/15 M GT (15:24)
[2017-01-24] MEDS ORDERED: GAVILYTE-C SO4000 ML GT (15:26)
[2017-01-24] MEDS ORDERED: SILACE60 MG/15 M GT (15:26)
[2017-01-24] MEDS ORDERED: NEXIUM20 MG GT (15:27)
[2017-01-24] MEDS ORDERED: FLUNISOLIDE25 ML (15:28)
[2017-01-24] MEDS ORDERED: OCEAN104 ML (15:29)
[2017-01-24] MEDS ORDERED: VIOKACE 10,4401 EACH GT (15:32)
[2017-01-24] MEDS ORDERED: SOD BICARBONATE GT (15:33)
[2017-01-24] MEDS ORDERED: ACETAMINOPHEN325 MG GT (15:33)
[2017-01-24] MEDS ORDERED: PAMPRIN MAX PA1 EACH GT (15:34)
[2017-01-24] MEDS ORDERED: DIASTAT2.5 MG PR (15:36)
[2017-01-24] MEDS ORDERED: CLARITIN10 M3 GT (15:42)
[2017-01-24] MEDS ORDERED: KEPPRA500 MG GT (16:31)
[2017-01-24 19:00] LABS: HEMATOCRIT 41.3 % (35.0-45.0); HEMOGLOBIN 13.3 gm/dL (12.0-16.0); MEAN CELL VOLUME 97.4 FL (83-96); MEAN CORPUSCULAR HEMOGLOBIN 31.4 PG (28-34); MEAN CORPUSCULAR HGB CONC 32.2 g/dL (30-36); RED BLOOD COUNT 4.24 X10e (3.90-5.30); RED CELL DISTRIBUTION WIDTH 13.6 % (11.0-15.5); WHITE BLOOD COUNT 4.9 X10e3 (4.0-10.5)
[2017-01-24 19:03] LABS: PROTHROMBIN TIME (PATIENT) 10.7 SECONDS (10.0-11.7)
[2017-01-24 19:14] LABS: ALBUMIN SERUM 3.8 g/dL (3.5-5.0); BILIRUBIN,TOTAL 0.6 mg/dL (0.2-2.0); CALCIUM SERUM 9.3 mg/dL (8.4-10.2); CREATININE SERUM 0.6 mg/dL (0.6-1.4); GLOM FILT RATE Estimated 110.1 mL/min (>60); POTASSIUM 4.1 mmol/L (3.5-5.1); PROTEIN TOTAL SERUM 7.4 g/dL (6.0-8.3)
[2017-01-24 19:37] LABS: URINE SOURCE CATH
[2017-01-24 19:42] LABS: URINE APPEARANCE TURBID; URINE BILIRUBIN NEG (NEG); URINE BLOOD 1+ (NEG); URINE COLOR YELLOW; URINE GLUCOSE NEG (NEG); URINE KETONE NEG (NEG); URINE LEUKOCYTE ESTERASE 3+ (NEG); URINE NITRATE NEG (NEG); URINE PROTEIN TRACE (NEG); URINE SPECIFIC GRAVITY 1.012 (1.003-1.035); URINE UROBILINOGEN 0.2 MG/DL (NEG)
[2017-01-24 19:44] LABS: URINE BACTERIA AUWI 4+ (NEGATIVE); URINE SQUAMOUS EPITHELIAL CELL FEW /[HPF]; UWBCS1 AUWI INNUM (0-5)
== END 2017-01-26 08:15 ==
LOC: CED 11:39 → CEDOF 15:15 → CED 15:49 → C2A 17:51 → CEDOF 17:51 → EDBD 01-26 08:15 → C2A 01-26 08:15
PROVIDERS: Physician Assistant Medical
DX: Z43.1 Encounter for attention to gastrostomy (principal); G80.9 Cerebral palsy, unspecified; F73 Profound intellectual disabilities; G40.909 Epilepsy, unspecified, not intractable, without status epilepticus; R13.10 Dysphagia, unspecified; K21.9 Gastro-esophageal reflux disease without esophagitis; K29.70 Gastritis, unspecified, without bleeding; I95.9 Hypotension, unspecified
CPT/HCPCS: 71010; 74000; 74022; 80053; 81003; 82947; 85027; 85610; 87086; 87088; 87186; 96374; 96375; 96376; 99284; C9113; G0378; J1953; J2250

== ENCOUNTER → 2017-03-14 | Outpatient (CLI) | payer MEDICARE, OTHER ==
[~2017-03-14] MED LIST changes: +ACETAMINOPHEN325 MG GT; +DIASTAT2.5 MG PR; +FYCOMPA2 MG GT; +GAVILYTE-C SO4000 ML GT; +KEPPRA500 MG GT; +LACTULOSE10 GM/15 M GT; +OCEAN104 ML; +PAMPRIN MAX PA1 EACH GT; +ROBAFEN100 MG/5 M GT; +SILACE60 MG/15 M GT; +SOD BICARBONATE GT
== END | disposition home or self-care (01) ==
LOC: CSSDAY 13:00
DX: M81.0 Age-related osteoporosis without current pathological fracture (principal)
CPT/HCPCS: 96372; J0897